=== PATIENT | male | born 1980 | race Caucasian/White ===

== ENCOUNTER → 2018-03-24 07:07 | Outpatient (CLI) | payer OTHER, SELFPAY ==
[2018-03-24 07:28] LABS: White Blood Cell Count 6.34 k/cumm (4.4-10.8)
[2018-03-24 07:29] LABS: Abs Immature Grans 0.02 k/cumm (0.0-0.09); Absolute Basophil Count 0.03 k/cumm (0.0-0.2); Absolute Eosinophil Count 0.14 k/cumm (0.0-0.7); Absolute Monocyte Count 0.72 k/cumm (0.11-0.7); Absolute Neutrophil Count 3.93 k/cumm (1.2-6.7); Basophils % 0.5; Eosinophils % 2.2; HCT 46.8 % (40.0-50.0); HGB 16.4 g/dL (13.5-17.5); Immature Grans % 0.3; Lymphocytes % 23.7; Mean Corpuscular Hemoglobin 28.5 pg (27.0-33.0); Mean Corpuscular Volume 81.4 fL (80-95); Mean Platelet Volume 11.2 fL (8.0-11.0); Monocytes % 11.4; Neutrophils % 61.9; Platelet Count 188 x1000/uL (130-400); RBC 5.75 m/cumm (4.50-6.00); RBC Distribution Width 13.6 % (11.8-14.1)
[2018-03-24 07:40] LABS: ALT 98 U/L (12-78); AST 61 U/L (15-37); Alkaline Phosphatase 64 U/L (46-116); Anion Gap 8.1 mmol/L (3-11); BUN 16 mg/dL (7-18); Bilirubin, Total 0.6 mg/dL (0.2-1.0); CO2 26.9 mmol/L (21.0-32.0); CREATININE 0.81 mg/dL (0.70-1.30); Calcium 8.6 mg/dL (8.5-10.1); Chloride 103 mmol/L (98-107); Glucose 100 mg/dL (70-100); Potassium 3.9 mmol/L (3.5-5.1); Sodium 138 mmol/L (136-145); Total Protein 7.1 g/dL (6.4-8.2)
== END ==
PROVIDERS: PCP Nurse Practitioner; Visit Provider Internal Medicine Hematology & Oncology
DX: D69.6 Thrombocytopenia, unspecified (principal)
CPT/HCPCS: 36415; 80053; 85025

== ENCOUNTER 2018-04-03 15:30 | Outpatient (RCR) | payer OTHER, SELFPAY ==
--- NOTE | 2017-08-07 15:14 | PTIDS_ITS ---
DATE: 08/07/17 REFERRING PROVIDER: Aicha Beckford NP DIAGNOSIS: right shoulder pain Patient did not return for a follow up appointment(s). ___x__ Patient called to cancel remaining appointment(s). Reason: improved symptoms Return to physician recommended. Patient had achieved an improvement in condition up to their prior level of function. Patient was instructed in a customized home exercise program to continue independently at home. The patient was given the option to call and schedule an appointment any time within a 3-week period if they experience a return of symptoms. Patient did not schedule follow up within this time frame. COMMENTS: ___x__ Discharge from PT at this time. Medicare: Unable to assign G-Codes due to the lack of a formal follow up visit. Patient did not schedule further visits after their last attended appointment and therefore a final assessment could not be performed.
--- NOTE | 2018-04-03 15:30 | IE_ITS ---
Date: April 03, 2018 Referring: Davidson Cannon MD M.D. Diagnosis: L low back pain/hamstring tightness P.T. Diagnosis: L hamstring tightness, deconditioning SUBJECTIVE: History of Present Illness: Carlos presents with complaints of insidious onset of L hamstring pain.He states that he began noticing pain several weeks ago without any exacerbating events. States his leg just feels tight all the time. He is unable to identify any exacerbating factors although he does get pain alleviation with use of CBD oil which he uses nightly. He had also recently purchased orthotics to address some heel pain and he feels these maybe helping with the hamstring pain as well. He denies numbness or tingling, denies radiation to the low back, buttock. 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 He spends a great deal of time on his feet throughout the day. He does not perform any regular exercise. Current Level of Function: Grossly unrestricted. The patient does report some difficulty squatting and donning/doffing shoes. Previous Treatment: Patient has been seen here in PT for shoulder and neck pain , has been recommended for a regular exercise program, and in fact has met with our job trainer here in the clinic, however patient admits that he has not taken up any regular activities. Social: Comorbidities: Idiopathic thrombocytopenic purpura, anxiety and hypertension. Falls in the last year: __X__ No ____Yes - How many? ____ - (if over 2, balance SM needs to be completed) Reported hospitalizations in the last year - __X__ No ____ Yes - Dates of admission/reason: Medications: Cetirizine, Lisinopril, Lorazepam. Quality of Life: __X__ Excellent ____ Good ____ Fair ____ Poor Standardized Measures: LEFS score: __76/80 OBJECTIVE: Posture: Patient demonstrates rounded shoulder, forward head posturing, exaggerated in seated position. He is well maintained longitudinal arches, mild genu varus. Observation: (behavior, atrophy, skin color, etc.) Gait: Non-antalgic, non-ataxic Palpation: Grossly non-tender throughout the LE's bilaterally. ROM: Trunk motion is WNL, the patient is able to demonstrate forward flexion, fingertips 6 from the floor, limited by drawing through the hamstrings bilaterally, otherwise trunk ROM is WNL. Hip motion is full and painfree Strength: Hip flexion 5/5 bilaterally, quads 5/5, hamstrings 5/5 bilaterally without pain reproduction. Ankle dorsiflexion is 5/5 bilaterally, hip IR is 4+/ 5 bilaterally, ER 4+/5 bilaterally. Of note: in seated position has poor proximal stability requiring UE support for resisted testing of LE's. MMT to glut med is 4-/5 on L, 4/5 R. Special Tests: (-) slump test although patient dumas shave hamstring drawing with this bilaterally. SLR allows 65 degrees R, 45 degrees on the L with pain symptoms isolated to the hamstring and denial of low back, buttock or calf pain. Neuro: Dermatomes and myotomes are WNL. DTR's are 2+ for the patella and Achilles tendon reflexes bilaterally. Patient able to toe and heel walk. Treatment: Consisted of evaluation followed by long discussion regarding appropriate treatment planning and goals. The patient was instructed in early HEP beginning with core stabilization and glut strengthening exercises. He was also instructed in self stretching techniques for hamstring by downward dog position. IE: [id number] Direct treatment time: 40 MINS Total treatment time: 40ISN ASSESSMENT: Patient is a 37-year-old male, referred for PT services with the diagnosis of L hamstring pain. Patient presents with clinical signs and symptoms consistent with diagnosis with significant muscle imbalance and soft tissue tightness, as well as generalized weakness and deconditioning. , as demonstrated by the following impairment level findings: 1: Decreased core stability. 2: Decreased gluteal strength. 3: Decreased hamstring flexibility. 4: Decreased activity7 tolerance. Impairments are contributing to the following functional limitations: 1: L hamstring pain throughout the course of the day. 2 : Pain at rest. 3: Difficulty with ADL's, particularly donning and doffing socks and shoes. Patient is assessed as: __X__ Low 65187 ____ Moderate 18964 ____ High 29018 complexity, based on the following: History: (list): Insidious onset of hamstring pain in otherwise health 37 year old male with inactive lifestyle. See comorbidities and social history. Examination: (list): X See above for functional limitations and impairments. Presentation: X Stable . Evolving Unstable Decision-Making: X Low complexity Moderate complexity High complexity % Disability based on __X__ Patient requires skilled PT intervention to remediate the above functional limitations to return to: __x__ Premorbid level of function __x__ Return to full functional mobility __x__ Return to work demands __x__ Improve QOL STG: __6__ weeks. 1: Patient able to tolerate introduction of strengthening and flexibility program without exacerbation of pain symptoms. LTG: __12__ weeks. 1: SLR to 65 degrees or greater. 2: Decrease pain at rest with VAS rating of less than 2/10 on average. PLAN: I will plan to see patient 1x a week initially with tapering visits over the course of next 12 weeks. Treatment will be primarily exercise based with core stabilization and proximal strengthening activities as well as instruction in self stretching exercises. Will incorporate manual stretching and joint mobilizations as needed. Will also encourage generalized activity for overall conditioning and health lifestyle. Thank you for this referral. Please do not hesitate to contact me with any questions or concerns regarding this patient's plan of care.
== END 2018-04-18 23:59 | disposition home or self-care (01) ==
LOC: PT 15:30
PROVIDERS: PCP Nurse Practitioner; Referring Provider Nurse Practitioner; Visit Provider Nurse Practitioner
DX: M79.652 Pain in left thigh (principal); M54.5 Low back pain; R29.898 Other symptoms and signs involving the musculoskeletal system
CPT/HCPCS: 97161

== ENCOUNTER → 2018-04-09 01:48 | Outpatient (CLI) | payer OTHER, SELFPAY ==
[2018-04-09 07:29] LABS: Abs Immature Grans 0.03 k/cumm (0.0-0.09); Absolute Basophil Count 0.04 k/cumm (0.0-0.2); Absolute Lymphocyte Count 1.47 k/cumm (1.2-3.4); Absolute Neutrophil Count 4.04 k/cumm (1.2-6.7); Basophils % 0.6; Eosinophils % 3.1; HCT 48.2 % (40.0-50.0); HGB 16.8 g/dL (13.5-17.5); Immature Grans % 0.5; Lymphocytes % 22.7; Mean Corp. HGB Concentration 34.9 g/dL (32.0-36.0); Mean Corpuscular Hemoglobin 28.6 pg (27.0-33.0); Mean Platelet Volume 11.4 fL (8.0-11.0); Monocytes % 10.8; Neutrophils % 62.3; Platelet Count 161 x1000/uL (130-400); RBC 5.88 m/cumm (4.50-6.00); RBC Distribution Width 13.7 % (11.8-14.1); White Blood Cell Count 6.48 k/cumm (4.4-10.8)
[2018-04-09 07:43] LABS: ALT 100 U/L (12-78); AST 54 U/L (15-37); Albumin 4.1 g/dL (3.4-5.0); Alkaline Phosphatase 62 U/L (46-116); Anion Gap 6.3 mmol/L (3-11); BUN 18 mg/dL (7-18); Bilirubin, Total 0.6 mg/dL (0.2-1.0); CO2 27.7 mmol/L (21.0-32.0); Calcium 8.7 mg/dL (8.5-10.1); Chloride 104 mmol/L (98-107); Glucose 99 mg/dL (70-100); Sodium 138 mmol/L (136-145); Total Protein 7.1 g/dL (6.4-8.2)
== END ==
PROVIDERS: Nurse Practitioner Family; PCP Nurse Practitioner; Visit Provider Internal Medicine Hematology & Oncology
DX: D69.6 Thrombocytopenia, unspecified (principal)
CPT/HCPCS: 36415; 80053; 85025

== ENCOUNTER 2018-04-25 07:51 | Outpatient (CLI) | payer OTHER, SELFPAY ==
[2018-04-25 09:38] LABS: ALT 66 U/L (12-78); AST 43 U/L (15-37); Albumin 4.2 g/dL (3.4-5.0); Alkaline Phosphatase 67 U/L (46-116); Bilirubin, Total 0.6 mg/dL (0.2-1.0); Cholesterol 209 mg/dL (50-200); HDL Cholesterol 42 mg/dL (40-60); LDL CHOLESTEROL 138 mg/dL (<100); Triglyceride 187 mg/dL (30-150)
[2018-04-25 09:51] LABS: Bilirubin, Direct 0.12 mg/dL (0.00-0.20)
== END 2018-04-25 08:11 ==
LOC: LBN 07:52 → LBO 07:54
PROVIDERS: PCP Nurse Practitioner; Visit Provider Nurse Practitioner
DX: R94.5 Abnormal results of liver function studies (principal); E78.1 Pure hyperglyceridemia
CPT/HCPCS: 36415; 80061; 80076; 83721

== ENCOUNTER 2018-06-30 09:02 | Outpatient (CLI) | payer OTHER, SELFPAY ==
[2018-06-30 09:23] LABS: Abs Immature Grans 0.04 k/cumm (0.0-0.09); Absolute Basophil Count 0.02 k/cumm (0.0-0.2); Absolute Lymphocyte Count 1.31 k/cumm (1.2-3.4); Absolute Monocyte Count 0.72 k/cumm (0.11-0.7); Absolute Neutrophil Count 4.93 k/cumm (1.2-6.7); Basophils % 0.3; Eosinophils % 1.4; HCT 47.1 % (40.0-50.0); HGB 16.4 g/dL (13.5-17.5); Immature Grans % 0.6; Lymphocytes % 18.4; Mean Corp. HGB Concentration 34.8 g/dL (32.0-36.0); Mean Corpuscular Hemoglobin 28.3 pg (27.0-33.0); Mean Corpuscular Volume 81.3 fL (80-95); Monocytes % 10.1; Neutrophils % 69.2; RBC 5.79 m/cumm (4.50-6.00); RBC Distribution Width 13.8 % (11.8-14.1); White Blood Cell Count 7.12 k/cumm (4.4-10.8)
[2018-06-30 09:47] LABS: ALT 75 U/L (12-78); AST 40 U/L (15-37); Albumin 4.1 g/dL (3.4-5.0); Alkaline Phosphatase 62 U/L (46-116); Anion Gap 7.2 mmol/L (3-11); BUN 19 mg/dL (7-18); Bilirubin, Total 0.6 mg/dL (0.2-1.0); CO2 29.8 mmol/L (21.0-32.0); Calcium 9.1 mg/dL (8.5-10.1); Chloride 103 mmol/L (98-107); Glucose 104 mg/dL (70-100); Potassium 4.1 mmol/L (3.5-5.1); Sodium 140 mmol/L (136-145); Total Protein 7.3 g/dL (6.4-8.2)
[2018-06-30 09:50] LABS: Platelet Count 11 x1000/uL (130-400)
[2018-06-30 09:52] LABS: Diff Comment Diff Reviewed
[2018-06-30 09:53] LABS: Polychromasia Present
== END 2018-06-30 09:22 ==
PROVIDERS: Nurse Practitioner Family; PCP Nurse Practitioner; Visit Provider Internal Medicine Hematology & Oncology
DX: D69.3 Immune thrombocytopenic purpura (principal)
CPT/HCPCS: 36415; 80053; 85025

== ENCOUNTER 2018-07-01 12:17 | Outpatient (CLI) | payer OTHER, SELFPAY ==
[2018-07-01 12:41] LABS: Abs Immature Grans 0.03 k/cumm (0.0-0.09); Absolute Basophil Count 0.01 k/cumm (0.0-0.2); Absolute Eosinophil Count 0.03 k/cumm (0.0-0.7); Absolute Lymphocyte Count 0.66 k/cumm (1.2-3.4); Absolute Monocyte Count 0.19 k/cumm (0.11-0.7); Absolute Neutrophil Count 5.97 k/cumm (1.2-6.7); Basophils % 0.1; Eosinophils % 0.4; HCT 46.3 % (40.0-50.0); Immature Grans % 0.4; Lymphocytes % 9.6; Mean Corp. HGB Concentration 34.6 g/dL (32.0-36.0); Mean Corpuscular Hemoglobin 27.9 pg (27.0-33.0); Mean Corpuscular Volume 80.8 fL (80-95); Monocytes % 2.8; Neutrophils % 86.7; Platelet Count 32 x1000/uL (130-400); RBC 5.73 m/cumm (4.50-6.00); RBC Distribution Width 13.7 % (11.8-14.1); White Blood Cell Count 6.89 k/cumm (4.4-10.8)
[2018-07-01 12:49] LABS: Diff Comment PLT Morph Reviewed; RBC Morphology Normal
[2018-07-01 12:54] LABS: ALT 57 U/L (12-78); AST 31 U/L (15-37); Albumin 3.6 g/dL (3.4-5.0); Alkaline Phosphatase 59 U/L (46-116); Anion Gap 7.2 mmol/L (3-11); BUN 15 mg/dL (7-18); Bilirubin, Total 0.8 mg/dL (0.2-1.0); CO2 27.8 mmol/L (21.0-32.0); Calcium 9.1 mg/dL (8.5-10.1); Chloride 99 mmol/L (98-107); Glucose 102 mg/dL (70-100); Potassium 4.1 mmol/L (3.5-5.1); Sodium 134 mmol/L (136-145); Total Protein 10.8 g/dL (6.4-8.2)
== END 2018-07-01 12:37 ==
LOC: LBN 12:18 → LBO 12:19
PROVIDERS: PCP Nurse Practitioner; Visit Provider Internal Medicine Hematology & Oncology
DX: D69.3 Immune thrombocytopenic purpura (principal)
CPT/HCPCS: 36415; 80053; 86900; 86901; 85025

== ENCOUNTER 2018-07-04 02:17 | Outpatient (CLI) | payer OTHER, SELFPAY ==
[2018-07-04 07:49] LABS: Abs Immature Grans 0.04 k/cumm (0.0-0.09); Absolute Basophil Count 0.01 k/cumm (0.0-0.2); Absolute Lymphocyte Count 1.55 k/cumm (1.2-3.4); Absolute Monocyte Count 1.22 k/cumm (0.11-0.7); Absolute Neutrophil Count 9.47 k/cumm (1.2-6.7); Basophils % 0.1; HCT 45.6 % (40.0-50.0); HGB 15.8 g/dL (13.5-17.5); Immature Grans % 0.3; Lymphocytes % 12.6; Mean Corp. HGB Concentration 34.6 g/dL (32.0-36.0); Mean Corpuscular Volume 80.9 fL (80-95); Monocytes % 9.9; Neutrophils % 77.1; RBC 5.64 m/cumm (4.50-6.00); RBC Distribution Width 13.9 % (11.8-14.1); White Blood Cell Count 12.28 k/cumm (4.4-10.8)
[2018-07-04 08:01] LABS: Diff Comment PLT Morph Reviewed; RBC Morphology Normal
[2018-07-04 08:02] LABS: Platelet Count 138 x1000/uL (130-400)
== END 2018-07-04 02:37 ==
PROVIDERS: PCP Nurse Practitioner; Visit Provider Internal Medicine Hematology & Oncology
DX: D69.3 Immune thrombocytopenic purpura (principal)
CPT/HCPCS: 36415; 85025

== ENCOUNTER 2018-07-07 01:28 | Outpatient (CLI) | payer OTHER, SELFPAY ==
[2018-07-07 07:59] LABS: Abs Immature Grans 0.11 k/cumm (0.0-0.09); Absolute Basophil Count 0.01 k/cumm (0.0-0.2); Absolute Eosinophil Count 0.09 k/cumm (0.0-0.7); Absolute Lymphocyte Count 1.35 k/cumm (1.2-3.4); Absolute Monocyte Count 0.93 k/cumm (0.11-0.7); Absolute Neutrophil Count 4.68 k/cumm (1.2-6.7); Basophils % 0.1; Eosinophils % 1.3; HCT 46.3 % (40.0-50.0); Immature Grans % 1.5; Lymphocytes % 18.8; Mean Corp. HGB Concentration 34.6 g/dL (32.0-36.0); Mean Corpuscular Volume 81.1 fL (80-95); Mean Platelet Volume 11.6 fL (8.0-11.0); Neutrophils % 65.3; Platelet Count 158 x1000/uL (130-400); RBC 5.71 m/cumm (4.50-6.00); RBC Distribution Width 13.5 % (11.8-14.1); White Blood Cell Count 7.17 k/cumm (4.4-10.8)
== END 2018-07-07 01:48 ==
PROVIDERS: PCP Nurse Practitioner; Visit Provider Internal Medicine Hematology & Oncology
DX: D69.3 Immune thrombocytopenic purpura (principal)
CPT/HCPCS: 36415; 85025

== ENCOUNTER 2018-07-18 00:45 | Outpatient (RCR) | payer OTHER, SELFPAY ==
[2018-07-04] MEDS: Acetaminophen 325 MG TAB 650 MG PO (12:41)
[2018-07-04] MEDS: diphenhydrAMINE 25 MG CAP PO (12:42)
[2018-07-04 13:10] VITALS: BP 117/59; PULSE 95; RESP 18; TEMP 37; O2SAT 93
[2018-07-04 13:40] VITALS: BP 119/63; PULSE 91; RESP 18; TEMP 36.7; O2SAT 93
[2018-07-04 14:11] VITALS: BP 114/75; PULSE 96; RESP 20; TEMP 36.6; O2SAT 93
[2018-07-04 14:35] VITALS: BP 122/73; PULSE 101; RESP 20; TEMP 37; O2SAT 92
[2018-07-04 15:43] VITALS: BP 108/62; PULSE 100; RESP 18; TEMP 36.5; O2SAT 93
[2018-07-04 16:38] VITALS: BP 124/71; PULSE 92; RESP 18; TEMP 36.6; O2SAT 93
[2018-07-09 09:56] LABS: Abs Immature Grans 0.09 k/cumm (0.0-0.09); Absolute Basophil Count 0.01 k/cumm (0.0-0.2); Absolute Eosinophil Count 0.11 k/cumm (0.0-0.7); Absolute Lymphocyte Count 0.99 k/cumm (1.2-3.4); Absolute Monocyte Count 0.78 k/cumm (0.11-0.7); Absolute Neutrophil Count 4.39 k/cumm (1.2-6.7); Basophils % 0.2; Eosinophils % 1.7; HCT 47.8 % (40.0-50.0); HGB 16.6 g/dL (13.5-17.5); Immature Grans % 1.4; Lymphocytes % 15.5; Mean Corp. HGB Concentration 34.7 g/dL (32.0-36.0); Mean Corpuscular Hemoglobin 28.1 pg (27.0-33.0); Mean Platelet Volume 11.2 fL (8.0-11.0); Monocytes % 12.2; Platelet Count 186 x1000/uL (130-400); White Blood Cell Count 6.37 k/cumm (4.4-10.8)
[2018-07-09 10:03] LABS: ALT 105 U/L (12-78); AST 65 U/L (15-37); Albumin 3.6 g/dL (3.4-5.0); Alkaline Phosphatase 59 U/L (46-116); Anion Gap 8.1 mmol/L (3-11); BUN 17 mg/dL (7-18); Bilirubin, Total 0.4 mg/dL (0.2-1.0); CO2 24.9 mmol/L (21.0-32.0); CREATININE 0.93 mg/dL (0.70-1.30); Calcium 8.8 mg/dL (8.5-10.1); Chloride 103 mmol/L (98-107); Glucose 135 mg/dL (70-100); Potassium 3.9 mmol/L (3.5-5.1); Sodium 136 mmol/L (136-145); Total Protein 8.2 g/dL (6.4-8.2)
[2018-07-11] VITALS (8 sets, daily range): BP systolic 112–142; BP diastolic 65–87; PULSE 78–100; RESP 18; TEMP 36.5–36.8; O2SAT 94–96
[2018-07-11] MEDS: Acetaminophen 325 MG TAB 650 MG PO (07:17)
[2018-07-11] MEDS: diphenhydrAMINE 25 MG CAP PO (07:18)
[2018-07-11] MEDS: Normal Saline Flush 10 ML SYR IVP (07:20)
[2018-07-11] MEDS: Dexamethasone 10 MG/ML VIAL IVP (07:21)
[2018-07-16 07:46] LABS: Abs Immature Grans 0.02 k/cumm (0.0-0.09); Absolute Basophil Count 0.02 k/cumm (0.0-0.2); Absolute Lymphocyte Count 1.25 k/cumm (1.2-3.4); Absolute Monocyte Count 0.76 k/cumm (0.11-0.7); Absolute Neutrophil Count 6.67 k/cumm (1.2-6.7); Basophils % 0.2; Eosinophils % 1.1; HCT 48.8 % (40.0-50.0); HGB 16.8 g/dL (13.5-17.5); Immature Grans % 0.2; Lymphocytes % 14.2; Mean Corp. HGB Concentration 34.4 g/dL (32.0-36.0); Mean Corpuscular Volume 81.2 fL (80-95); Mean Platelet Volume 12.4 fL (8.0-11.0); Monocytes % 8.6; Neutrophils % 75.7; Platelet Count 143 x1000/uL (130-400); RBC 6.01 m/cumm (4.50-6.00); RBC Distribution Width 13.9 % (11.8-14.1); White Blood Cell Count 8.82 k/cumm (4.4-10.8)
[2018-07-18] MEDS: Acetaminophen 325 MG TAB 650 MG PO (12:18)
[2018-07-18] MEDS: Normal Saline Flush 10 ML SYR IVP ×2 (12:18→13:18)
[2018-07-18] MEDS: diphenhydrAMINE 25 MG CAP PO (12:18)
[2018-07-18] MEDS: Dexamethasone 10 MG/ML VIAL IVP (12:18)
[2018-07-18 13:07] VITALS: BP 131/78; PULSE 87; RESP 18; TEMP 36.4; O2SAT 98
[2018-07-18 13:37] VITALS: BP 119/71; PULSE 91; RESP 18; TEMP 36.4; O2SAT 93
[2018-07-18 14:29] VITALS: BP 118/73; PULSE 89; RESP 18; TEMP 36.2; O2SAT 94
[2018-07-18 15:42] VITALS: BP 137/78; PULSE 99; RESP 18; TEMP 36.5; O2SAT 95
[2018-07-18 16:10] VITALS: BP 131/89; PULSE 99; RESP 18; TEMP 36.4; O2SAT 95
== END 2018-07-18 23:59 | disposition home or self-care (01) ==
LOC: INF 00:45
PROVIDERS: Internal Medicine Hematology & Oncology; PCP Nurse Practitioner; Visit Provider Internal Medicine
DX: D69.3 Immune thrombocytopenic purpura (principal)
CPT/HCPCS: 36415; 80053; 96365; 96366; 85025; J1100; J9310

== ENCOUNTER 2018-07-25 09:17 | Outpatient (CLI) | payer OTHER, SELFPAY ==
[2018-07-25 09:33] LABS: Abs Immature Grans 0.05 k/cumm (0.0-0.09); Basophils % 0.1; HCT 45.4 % (40.0-50.0); HGB 16.1 g/dL (13.5-17.5); Immature Grans % 0.3; Lymphocytes % 9.3; Mean Corp. HGB Concentration 35.5 g/dL (32.0-36.0); Mean Corpuscular Hemoglobin 28.6 pg (27.0-33.0); Mean Corpuscular Volume 80.6 fL (80-95); Mean Platelet Volume 11.7 fL (8.0-11.0); Monocytes % 9.6; Neutrophils % 80.7; Platelet Count 165 x1000/uL (130-400); RBC 5.63 m/cumm (4.50-6.00); RBC Distribution Width 13.9 % (11.8-14.1)
[2018-07-25 09:43] LABS: Absolute Basophil Count 0.02 k/cumm (0.0-0.2); Absolute Lymphocyte Count 1.53 k/cumm (1.2-3.4); Absolute Monocyte Count 1.57 k/cumm (0.11-0.7); Absolute Neutrophil Count 13.23 k/cumm (1.2-6.7); Diff Comment Agrees w/ Instrument; RBC Morphology Normal
[2018-07-25 09:48] LABS: ALT 60 U/L (12-78); AST 31 U/L (15-37); Albumin 3.8 g/dL (3.4-5.0); Alkaline Phosphatase 62 U/L (46-116); Anion Gap 11.1 mmol/L (3-11); BUN 24 mg/dL (7-18); Bilirubin, Total 0.7 mg/dL (0.2-1.0); CO2 24.9 mmol/L (21.0-32.0); CREATININE 0.96 mg/dL (0.70-1.30); Calcium 8.9 mg/dL (8.5-10.1); Chloride 102 mmol/L (98-107); Glucose 139 mg/dL (70-100); Potassium 4.1 mmol/L (3.5-5.1); Sodium 138 mmol/L (136-145); Total Protein 7.9 g/dL (6.4-8.2)
== END 2018-07-25 09:37 ==
PROVIDERS: PCP Nurse Practitioner; Visit Provider Internal Medicine Hematology & Oncology
DX: D69.3 Immune thrombocytopenic purpura (principal)
CPT/HCPCS: 36415; 80053; 85025

== ENCOUNTER 2018-08-11 01:00 | Outpatient (RCR) | payer OTHER, SELFPAY ==
[2018-07-23 07:11] LABS: Abs Immature Grans 0.05 k/cumm (0.0-0.09); Absolute Basophil Count 0.01 k/cumm (0.0-0.2); Absolute Eosinophil Count 0.01 k/cumm (0.0-0.7); Basophils % 0.1; Eosinophils % 0.1; HCT 45.4 % (40.0-50.0); HGB 16.1 g/dL (13.5-17.5); Immature Grans % 0.3; Lymphocytes % 7.6; Mean Corp. HGB Concentration 35.5 g/dL (32.0-36.0); Mean Corpuscular Volume 78.8 fL (80-95); Mean Platelet Volume 11.9 fL (8.0-11.0); Neutrophils % 87.9; Platelet Count 118 x1000/uL (130-400); RBC 5.76 m/cumm (4.50-6.00); RBC Distribution Width 13.4 % (11.8-14.1); White Blood Cell Count 14.96 k/cumm (4.4-10.8)
[2018-07-23 07:12] LABS: Absolute Lymphocyte Count 1.14 k/cumm (1.2-3.4); Absolute Neutrophil Count 13.15 k/cumm (1.2-6.7)
[2018-07-25] VITALS (8 sets, daily range): BP systolic 113–133; BP diastolic 59–82; PULSE 76–96; RESP 14–18; TEMP 36.1–37.2; O2SAT 91–98
[2018-07-25] MEDS: Acetaminophen 325 MG TAB 650 MG PO (12:11)
[2018-07-25] MEDS: diphenhydrAMINE 25 MG CAP PO (12:11)
[2018-07-25] MEDS: Dexamethasone 10 MG/ML VIAL IVP (12:12)
[2018-07-25] MEDS: Normal Saline Flush 10 ML SYR IVP (12:12)
== END 2018-08-18 23:59 | disposition home or self-care (01) ==
LOC: INF 01:00
PROVIDERS: PCP Nurse Practitioner; Visit Provider Internal Medicine
DX: D69.3 Immune thrombocytopenic purpura (principal)
CPT/HCPCS: 36415; 96365; 96366; 85025; J1100; J9310

== ENCOUNTER 2018-08-11 08:24 | Outpatient (CLI) | payer OTHER, SELFPAY ==
[2018-08-11 08:43] LABS: Abs Immature Grans 0.04 k/cumm (0.0-0.09); HGB 15.7 g/dL (13.5-17.5); Mean Corp. HGB Concentration 34.9 g/dL (32.0-36.0); Mean Corpuscular Hemoglobin 28.7 pg (27.0-33.0); Mean Corpuscular Volume 82.3 fL (80-95); Mean Platelet Volume 11.9 fL (8.0-11.0); RBC 5.47 m/cumm (4.50-6.00); RBC Distribution Width 14.1 % (11.8-14.1); White Blood Cell Count 13.06 k/cumm (4.4-10.8)
[2018-08-11 08:56] LABS: ALT 51 U/L (12-78); AST 30 U/L (15-37); Albumin 3.5 g/dL (3.4-5.0); Alkaline Phosphatase 64 U/L (46-116); Anion Gap 7.1 mmol/L (3-11); BUN 13 mg/dL (7-18); Bilirubin, Total 0.4 mg/dL (0.2-1.0); CO2 29.9 mmol/L (21.0-32.0); CREATININE 0.92 mg/dL (0.70-1.30); Calcium 9.2 mg/dL (8.5-10.1); Chloride 102 mmol/L (98-107); Glucose 99 mg/dL (70-100); Sodium 139 mmol/L (136-145); Total Protein 7.4 g/dL (6.4-8.2)
[2018-08-11 09:02] LABS: Absolute Basophil Count 0.26 k/cumm (0.0-0.2); Absolute Eosinophil Count 0.26 k/cumm (0.0-0.7); Absolute Lymphocyte Count 2.35 k/cumm (1.2-3.4); Absolute Monocyte Count 1.57 k/cumm (0.11-0.7); Absolute Neutrophil Count 8.62 k/cumm (1.2-6.7); Atypical Lymphocytes % 9; Diff Comment Manual Differential; RBC Morphology Normal
[2018-08-11 09:03] LABS: Platelet Count 184 x1000/uL (130-400)
== END 2018-08-11 08:44 ==
PROVIDERS: PCP Nurse Practitioner; Visit Provider Internal Medicine Hematology & Oncology
DX: D69.3 Immune thrombocytopenic purpura (principal)
CPT/HCPCS: 36415; 80053; 85025

== ENCOUNTER 2018-08-18 01:43 | Outpatient (CLI) | payer OTHER, SELFPAY ==
[2018-08-18 08:49] LABS: Abs Immature Grans 0.07 k/cumm (0.0-0.09); Absolute Basophil Count 0.06 k/cumm (0.0-0.2); Absolute Eosinophil Count 0.21 k/cumm (0.0-0.7); Absolute Lymphocyte Count 2.45 k/cumm (1.2-3.4); Absolute Monocyte Count 1.73 k/cumm (0.11-0.7); Absolute Neutrophil Count 5.62 k/cumm (1.2-6.7); Basophils % 0.6; Eosinophils % 2.1; HCT 46.9 % (40.0-50.0); HGB 15.9 g/dL (13.5-17.5); Immature Grans % 0.7; Lymphocytes % 24.2; Mean Corp. HGB Concentration 33.9 g/dL (32.0-36.0); Mean Corpuscular Hemoglobin 28.4 pg (27.0-33.0); Mean Corpuscular Volume 83.9 fL (80-95); Mean Platelet Volume 11.6 fL (8.0-11.0); Monocytes % 17.1; Neutrophils % 55.3; RBC 5.59 m/cumm (4.50-6.00); RBC Distribution Width 14.6 % (11.8-14.1); White Blood Cell Count 10.14 k/cumm (4.4-10.8)
[2018-08-18 09:05] LABS: Diff Comment Diff Reviewed; Platelet Count 532 x1000/uL (130-400)
== END 2018-08-18 02:03 ==
PROVIDERS: PCP Nurse Practitioner; Visit Provider Internal Medicine Hematology & Oncology
DX: D69.3 Immune thrombocytopenic purpura (principal)
CPT/HCPCS: 36415; 85025

== ENCOUNTER 2018-08-25 01:18 | Outpatient (CLI) | payer OTHER, SELFPAY ==
[2018-08-25 07:41] LABS: Abs Immature Grans 0.03 k/cumm (0.0-0.09); Absolute Basophil Count 0.07 k/cumm (0.0-0.2); Absolute Eosinophil Count 0.15 k/cumm (0.0-0.7); Absolute Lymphocyte Count 2.07 k/cumm (1.2-3.4); Absolute Monocyte Count 1.31 k/cumm (0.11-0.7); Absolute Neutrophil Count 5.22 k/cumm (1.2-6.7); Basophils % 0.8; Eosinophils % 1.7; HCT 48.1 % (40.0-50.0); Immature Grans % 0.3; Lymphocytes % 23.4; Mean Corp. HGB Concentration 33.3 g/dL (32.0-36.0); Mean Corpuscular Hemoglobin 28.2 pg (27.0-33.0); Mean Corpuscular Volume 84.8 fL (80-95); Monocytes % 14.8; Platelet Count 463 x1000/uL (130-400); RBC 5.67 m/cumm (4.50-6.00); RBC Distribution Width 14.9 % (11.8-14.1); White Blood Cell Count 8.85 k/cumm (4.4-10.8)
== END 2018-08-25 01:38 ==
PROVIDERS: PCP Nurse Practitioner; Visit Provider Internal Medicine Hematology & Oncology
DX: D69.3 Immune thrombocytopenic purpura (principal)
CPT/HCPCS: 36415; 85025

== ENCOUNTER 2018-09-01 02:28 | Outpatient (CLI) | payer OTHER, SELFPAY ==
[2018-09-01 07:17] LABS: Abs Immature Grans 0.02 k/cumm (0.0-0.09); Absolute Basophil Count 0.08 k/cumm (0.0-0.2); Absolute Eosinophil Count 0.13 k/cumm (0.0-0.7); Absolute Lymphocyte Count 2.76 k/cumm (1.2-3.4); Absolute Monocyte Count 1.26 k/cumm (0.11-0.7); Absolute Neutrophil Count 4.02 k/cumm (1.2-6.7); Eosinophils % 1.6; HCT 50.6 % (40.0-50.0); Immature Grans % 0.2; Lymphocytes % 33.4; Mean Corp. HGB Concentration 33.6 g/dL (32.0-36.0); Mean Corpuscular Hemoglobin 28.4 pg (27.0-33.0); Mean Corpuscular Volume 84.6 fL (80-95); Mean Platelet Volume 12.2 fL (8.0-11.0); Monocytes % 15.2; Neutrophils % 48.6; Platelet Count 395 x1000/uL (130-400); RBC 5.98 m/cumm (4.50-6.00); RBC Distribution Width 15.4 % (11.8-14.1); White Blood Cell Count 8.27 k/cumm (4.4-10.8)
== END 2018-09-01 02:48 ==
PROVIDERS: PCP Nurse Practitioner; Visit Provider Internal Medicine Hematology & Oncology
DX: D69.3 Immune thrombocytopenic purpura (principal)
CPT/HCPCS: 36415; 85025

== ENCOUNTER 2018-09-12 10:57 | Outpatient (CLI) | payer OTHER, SELFPAY ==
[2018-09-12 11:33] LABS: Abs Immature Grans 0.01 k/cumm (0.0-0.09); Absolute Basophil Count 0.07 k/cumm (0.0-0.2); Absolute Eosinophil Count 0.14 k/cumm (0.0-0.7); Absolute Lymphocyte Count 2.05 k/cumm (1.2-3.4); Absolute Monocyte Count 1.22 k/cumm (0.11-0.7); Absolute Neutrophil Count 5.07 k/cumm (1.2-6.7); Basophils % 0.8; Eosinophils % 1.6; HCT 47.7 % (40.0-50.0); HGB 16.3 g/dL (13.5-17.5); Immature Grans % 0.1; Lymphocytes % 23.9; Mean Corp. HGB Concentration 34.2 g/dL (32.0-36.0); Mean Corpuscular Hemoglobin 28.6 pg (27.0-33.0); Mean Corpuscular Volume 83.7 fL (80-95); Mean Platelet Volume 12.5 fL (8.0-11.0); Monocytes % 14.3; Neutrophils % 59.3; Platelet Count 242 x1000/uL (130-400); RBC Distribution Width 15.2 % (11.8-14.1); White Blood Cell Count 8.56 k/cumm (4.4-10.8)
== END 2018-09-12 11:17 ==
PROVIDERS: PCP Nurse Practitioner; Visit Provider Internal Medicine Hematology & Oncology
DX: D69.3 Immune thrombocytopenic purpura (principal)
CPT/HCPCS: 36415; 85025

== ENCOUNTER 2018-09-15 01:25 | Outpatient (CLI) | payer OTHER, SELFPAY ==
[2018-09-15 07:59] LABS: Abs Immature Grans 0.01 k/cumm (0.0-0.09); Absolute Basophil Count 0.06 k/cumm (0.0-0.2); Absolute Eosinophil Count 0.12 k/cumm (0.0-0.7); Absolute Lymphocyte Count 1.75 k/cumm (1.2-3.4); Absolute Monocyte Count 1.04 k/cumm (0.11-0.7); Absolute Neutrophil Count 3.31 k/cumm (1.2-6.7); Eosinophils % 1.9; HGB 16.3 g/dL (13.5-17.5); Immature Grans % 0.2; Lymphocytes % 27.8; Mean Corpuscular Hemoglobin 29.1 pg (27.0-33.0); Mean Corpuscular Volume 85.7 fL (80-95); Mean Platelet Volume 12.5 fL (8.0-11.0); Monocytes % 16.5; Neutrophils % 52.6; Platelet Count 259 x1000/uL (130-400); RBC Distribution Width 15.6 % (11.8-14.1); White Blood Cell Count 6.29 k/cumm (4.4-10.8)
== END 2018-09-15 01:45 ==
PROVIDERS: PCP Nurse Practitioner; Visit Provider Internal Medicine Hematology & Oncology
DX: D69.3 Immune thrombocytopenic purpura (principal)
CPT/HCPCS: 36415; 85025

== ENCOUNTER 2018-09-29 02:45 | Outpatient (CLI) | payer OTHER, SELFPAY ==
[2018-09-29 07:25] LABS: Abs Immature Grans 0.02 k/cumm (0.0-0.09); Absolute Basophil Count 0.04 k/cumm (0.0-0.2); Absolute Eosinophil Count 0.16 k/cumm (0.0-0.7); Absolute Lymphocyte Count 1.74 k/cumm (1.2-3.4); Absolute Monocyte Count 1.42 k/cumm (0.11-0.7); Absolute Neutrophil Count 7.21 k/cumm (1.2-6.7); Basophils % 0.4; Eosinophils % 1.5; HCT 48.3 % (40.0-50.0); Immature Grans % 0.2; Lymphocytes % 16.4; Mean Corp. HGB Concentration 33.1 g/dL (32.0-36.0); Mean Corpuscular Hemoglobin 28.8 pg (27.0-33.0); Mean Corpuscular Volume 86.9 fL (80-95); Mean Platelet Volume 12.4 fL (8.0-11.0); Monocytes % 13.4; Neutrophils % 68.1; RBC 5.56 m/cumm (4.50-6.00); White Blood Cell Count 10.59 k/cumm (4.4-10.8)
[2018-09-29 07:35] LABS: Platelet Count 368 x1000/uL (130-400)
== END 2018-09-29 03:05 ==
PROVIDERS: PCP Nurse Practitioner; Visit Provider Internal Medicine Hematology & Oncology
DX: D69.3 Immune thrombocytopenic purpura (principal)
CPT/HCPCS: 36415; 85025

== ENCOUNTER 2018-10-13 01:36 | Outpatient (CLI) | payer OTHER, SELFPAY ==
[2018-10-13 07:49] LABS: Abs Immature Grans 0.03 k/cumm (0.0-0.09); Absolute Basophil Count 0.06 k/cumm (0.0-0.2); Absolute Eosinophil Count 0.11 k/cumm (0.0-0.7); Absolute Neutrophil Count 5.29 k/cumm (1.2-6.7); Basophils % 0.7; Eosinophils % 1.2; HCT 49.5 % (40.0-50.0); HGB 16.7 g/dL (13.5-17.5); Immature Grans % 0.3; Lymphocytes % 23.4; Mean Corp. HGB Concentration 33.7 g/dL (32.0-36.0); Mean Corpuscular Hemoglobin 28.7 pg (27.0-33.0); Mean Corpuscular Volume 85.2 fL (80-95); Mean Platelet Volume 12.4 fL (8.0-11.0); Monocytes % 15.6; Neutrophils % 58.8; Platelet Count 333 x1000/uL (130-400); RBC 5.81 m/cumm (4.50-6.00); RBC Distribution Width 15.6 % (11.8-14.1); White Blood Cell Count 8.99 k/cumm (4.4-10.8)
== END 2018-10-13 01:56 ==
PROVIDERS: PCP Nurse Practitioner; Visit Provider Internal Medicine Hematology & Oncology
DX: D69.3 Immune thrombocytopenic purpura (principal)
CPT/HCPCS: 36415; 85025

== ENCOUNTER 2018-11-17 01:29 | Outpatient (CLI) | payer OTHER, SELFPAY ==
[2018-11-17 07:21] LABS: Abs Immature Grans 0.01 k/cumm (0.0-0.09); Absolute Basophil Count 0.05 k/cumm (0.0-0.2); Absolute Eosinophil Count 0.19 k/cumm (0.0-0.7); Absolute Lymphocyte Count 1.96 k/cumm (1.2-3.4); Absolute Monocyte Count 1.12 k/cumm (0.11-0.7); Absolute Neutrophil Count 4.83 k/cumm (1.2-6.7); Basophils % 0.6; Eosinophils % 2.3; HCT 47.7 % (40.0-50.0); HGB 16.1 g/dL (13.5-17.5); Immature Grans % 0.1; Mean Corp. HGB Concentration 33.8 g/dL (32.0-36.0); Mean Corpuscular Hemoglobin 29.4 pg (27.0-33.0); Mean Platelet Volume 12.1 fL (8.0-11.0); Monocytes % 13.7; Neutrophils % 59.3; Platelet Count 390 x1000/uL (130-400); RBC 5.48 m/cumm (4.50-6.00); RBC Distribution Width 15.5 % (11.8-14.1); White Blood Cell Count 8.16 k/cumm (4.4-10.8)
== END 2018-11-17 01:49 ==
PROVIDERS: PCP Nurse Practitioner; Visit Provider Internal Medicine Hematology & Oncology
DX: D69.3 Immune thrombocytopenic purpura (principal)
CPT/HCPCS: 36415; 85025

== ENCOUNTER 2018-12-24 10:02 | Outpatient (CLI) | payer OTHER, SELFPAY ==
[2018-12-24 10:11] LABS: Abs Immature Grans 0.05 k/cumm (0.0-0.09); Absolute Basophil Count 0.04 k/cumm (0.0-0.2); Absolute Eosinophil Count 0.08 k/cumm (0.0-0.7); Absolute Lymphocyte Count 1.71 k/cumm (1.2-3.4); Absolute Monocyte Count 1.37 k/cumm (0.11-0.7); Basophils % 0.3; Eosinophils % 0.6; HCT 48.3 % (40.0-50.0); HGB 16.4 g/dL (13.5-17.5); Immature Grans % 0.4; Lymphocytes % 13.5; Mean Corpuscular Hemoglobin 29.2 pg (27.0-33.0); Mean Corpuscular Volume 86.1 fL (80-95); Mean Platelet Volume 12.2 fL (8.0-11.0); Monocytes % 10.8; Neutrophils % 74.4; Platelet Count 363 x1000/uL (130-400); RBC 5.61 m/cumm (4.50-6.00); RBC Distribution Width 15.2 % (11.8-14.1); White Blood Cell Count 12.64 k/cumm (4.4-10.8)
[2018-12-24 10:30] LABS: ALT 69 U/L (12-78); AST 38 U/L (15-37); Alkaline Phosphatase 99 U/L (46-116); Anion Gap 11.2 mmol/L (3-11); BUN 15 mg/dL (7-18); Bilirubin, Total 0.5 mg/dL (0.2-1.0); CO2 25.8 mmol/L (21.0-32.0); Calcium 8.9 mg/dL (8.5-10.1); Chloride 101 mmol/L (98-107); Glucose 128 mg/dL (70-100); Potassium 3.9 mmol/L (3.5-5.1); Sodium 138 mmol/L (136-145); TSH (W/Ref FT4) 1.13 uIU/mL (0.358-3.74); Total Protein 7.5 g/dL (6.4-8.2)
== END 2018-12-24 10:22 ==
PROVIDERS: PCP Nurse Practitioner; Visit Provider Internal Medicine Hematology & Oncology
DX: F41.9 Anxiety disorder, unspecified (principal); B02.9 Zoster without complications
CPT/HCPCS: 36415; 80053; 84443; 85025

== ENCOUNTER 2019-02-09 06:47 | Outpatient (CLI) | payer OTHER, SELFPAY ==
[2019-02-09 07:13] LABS: HCT 48.7 % (40.0-50.0); HGB 16.8 g/dL (13.5-17.5); Mean Corp. HGB Concentration 34.5 g/dL (32.0-36.0); Mean Corpuscular Hemoglobin 29.9 pg (27.0-33.0); Mean Corpuscular Volume 86.7 fL (80-95); Mean Platelet Volume 12.4 fL (8.0-11.0); Platelet Count 352 x1000/uL (130-400); RBC 5.62 m/cumm (4.50-6.00); RBC Distribution Width 15.5 % (11.8-14.1); White Blood Cell Count 8.35 k/cumm (4.4-10.8)
[2019-02-09 07:37] LABS: ALT 53 U/L (12-78); AST 31 U/L (15-37); Alkaline Phosphatase 89 U/L (46-116); Anion Gap 11.2 mmol/L (3-11); BUN 16 mg/dL (7-18); Bilirubin, Total 0.4 mg/dL (0.2-1.0); CO2 24.8 mmol/L (21.0-32.0); CREATININE 0.86 mg/dL (0.70-1.30); Calcium 9.1 mg/dL (8.5-10.1); Chloride 105 mmol/L (98-107); Glucose 115 mg/dL (70-100); Potassium 4.3 mmol/L (3.5-5.1); Sodium 141 mmol/L (136-145); Total Protein 7.2 g/dL (6.4-8.2)
[2019-02-09 08:20] LABS: Absolute Basophil Count 0.08 k/cumm (0.0-0.2); Absolute Eosinophil Count 0.08 k/cumm (0.0-0.7); Absolute Lymphocyte Count 2.42 k/cumm (1.2-3.4); Absolute Monocyte Count 0.84 k/cumm (0.11-0.7); Absolute Neutrophil Count 4.93 k/cumm (1.2-6.7); Atypical Lymphocytes % 5
[2019-02-09 08:21] LABS: Diff Comment Manual Differential
[2019-02-09 08:22] LABS: Poikilocytes 1+
== END 2019-02-09 07:07 ==
PROVIDERS: PCP Nurse Practitioner; Visit Provider Internal Medicine Hematology & Oncology
DX: D69.3 Immune thrombocytopenic purpura (principal); D69.6 Thrombocytopenia, unspecified
CPT/HCPCS: 36415; 80053; 85025

== ENCOUNTER 2019-04-21 08:22 | Outpatient (CLI) | payer OTHER, SELFPAY ==
[2019-04-21 09:17] LABS: Abs Immature Grans 0.02 k/cumm (0.0-0.09); Absolute Basophil Count 0.07 k/cumm (0.0-0.2); Absolute Eosinophil Count 0.23 k/cumm (0.0-0.7); Absolute Lymphocyte Count 2.89 k/cumm (1.2-3.4); Absolute Monocyte Count 1.22 k/cumm (0.11-0.7); Absolute Neutrophil Count 5.32 k/cumm (1.2-6.7); Basophils % 0.7; Eosinophils % 2.4; HCT 48.3 % (40.0-50.0); HGB 16.4 g/dL (13.5-17.5); Immature Grans % 0.2; Lymphocytes % 29.6; Mean Corpuscular Hemoglobin 29.6 pg (27.0-33.0); Mean Corpuscular Volume 87.2 fL (80-95); Monocytes % 12.5; Neutrophils % 54.6; Platelet Count 309 x1000/uL (130-400); RBC 5.54 m/cumm (4.50-6.00); RBC Distribution Width 15.3 % (11.8-14.1); White Blood Cell Count 9.75 k/cumm (4.4-10.8)
[2019-04-21 10:09] LABS: ALT 56 U/L (16-63); AST 34 U/L (15-37); Albumin 4.1 g/dL (3.4-5.0); Alkaline Phosphatase 83 U/L (46-116); Anion Gap 11.1 mmol/L (3-11); BUN 16 mg/dL (7-18); Bilirubin, Total 0.3 mg/dL (0.2-1.0); CO2 24.9 mmol/L (21.0-32.0); Calcium 9.3 mg/dL (8.5-10.1); Chloride 104 mmol/L (98-107); Glucose 100 mg/dL (70-100); Potassium 4.8 mmol/L (3.5-5.1); Sodium 140 mmol/L (136-145); Total Protein 7.2 g/dL (6.4-8.2)
== END 2019-04-21 08:42 ==
PROVIDERS: PCP Nurse Practitioner; Visit Provider Internal Medicine Hematology & Oncology
DX: B02.9 Zoster without complications (principal)
CPT/HCPCS: 36415; 80053; 85025

== ENCOUNTER 2019-05-27 01:43 | Outpatient (CLI) | payer OTHER, SELFPAY ==
[2019-05-27 07:27] LABS: Abs Immature Grans 0.03 k/cumm (0.0-0.09); Absolute Basophil Count 0.06 k/cumm (0.0-0.2); Absolute Eosinophil Count 0.24 k/cumm (0.0-0.7); Absolute Lymphocyte Count 2.63 k/cumm (1.2-3.4); Absolute Monocyte Count 1.36 k/cumm (0.11-0.7); Absolute Neutrophil Count 5.16 k/cumm (1.2-6.7); Basophils % 0.6; Eosinophils % 2.5; HGB 16.8 g/dL (13.5-17.5); Immature Grans % 0.3; Lymphocytes % 27.7; Mean Corp. HGB Concentration 34.3 g/dL (32.0-36.0); Mean Corpuscular Hemoglobin 29.5 pg (27.0-33.0); Mean Platelet Volume 12.6 fL (8.0-11.0); Monocytes % 14.3; Neutrophils % 54.6; Platelet Count 307 x1000/uL (130-400); RBC Distribution Width 14.9 % (11.8-14.1); White Blood Cell Count 9.48 k/cumm (4.4-10.8)
[2019-05-27 07:38] LABS: ALT 56 U/L (16-63); AST 40 U/L (15-37); Albumin 4.1 g/dL (3.4-5.0); Alkaline Phosphatase 81 U/L (46-116); Anion Gap 9.6 mmol/L (3-11); BUN 15 mg/dL (7-18); Bilirubin, Total 0.7 mg/dL (0.2-1.0); CO2 26.4 mmol/L (21.0-32.0); CREATININE 0.81 mg/dL (0.70-1.30); Calcium 9.2 mg/dL (8.5-10.1); Chloride 106 mmol/L (98-107); Glucose 106 mg/dL (70-100); Potassium 4.2 mmol/L (3.5-5.1); Sodium 142 mmol/L (136-145); Total Protein 7.6 g/dL (6.4-8.2)
== END 2019-05-27 02:03 ==
PROVIDERS: PCP Nurse Practitioner; Visit Provider Internal Medicine Hematology & Oncology
DX: B02.9 Zoster without complications (principal)
CPT/HCPCS: 36415; 80053; 85025

== ENCOUNTER 2019-07-24 10:28 | Outpatient (CLI) | payer OTHER, SELFPAY ==
[2019-07-24 11:03] LABS: Abs Immature Grans 0.03 k/cumm (0.0-0.09); Absolute Basophil Count 0.06 k/cumm (0.0-0.2); Absolute Eosinophil Count 0.13 k/cumm (0.0-0.7); Absolute Lymphocyte Count 2.79 k/cumm (1.2-3.4); Absolute Monocyte Count 1.61 k/cumm (0.11-0.7); Basophils % 0.5; Eosinophils % 1.1; HCT 47.3 % (40.0-50.0); Immature Grans % 0.3; Lymphocytes % 24.4; Mean Corp. HGB Concentration 33.8 g/dL (32.0-36.0); Mean Corpuscular Hemoglobin 28.7 pg (27.0-33.0); Mean Corpuscular Volume 84.8 fL (80-95); Mean Platelet Volume 12.6 fL (8.0-11.0); Monocytes % 14.1; Neutrophils % 59.6; RBC 5.58 m/cumm (4.50-6.00); RBC Distribution Width 14.7 % (11.8-14.1); White Blood Cell Count 11.45 k/cumm (4.4-10.8)
[2019-07-24 11:06] LABS: Absolute Neutrophil Count 6.82 k/cumm (1.2-6.7)
[2019-07-24 11:25] LABS: Diff Comment Diff Reviewed; Platelet Count 307 x1000/uL (130-400); RBC Morphology Normal
[2019-07-24 12:07] LABS: ALT 62 U/L (16-63); AST 46 U/L (15-37); Albumin 4.5 g/dL (3.4-5.0); Alkaline Phosphatase 83 U/L (46-116); Anion Gap 11.1 mmol/L (3-11); BUN 15 mg/dL (7-18); Bilirubin, Total 0.6 mg/dL (0.2-1.0); CO2 24.9 mmol/L (21.0-32.0); CREATININE 0.78 mg/dL (0.70-1.30); Calcium 9.7 mg/dL (8.5-10.1); Chloride 105 mmol/L (98-107); Glucose 124 mg/dL (74-106); Potassium 4.4 mmol/L (3.5-5.1); Sodium 141 mmol/L (136-145); Total Protein 7.6 g/dL (6.4-8.2)
== END 2019-07-24 10:48 ==
PROVIDERS: PCP Nurse Practitioner; Visit Provider Internal Medicine Hematology & Oncology
DX: B02.9 Zoster without complications (principal)
CPT/HCPCS: 36415; 80053; 85025

== ENCOUNTER 2020-04-06 11:21 | Outpatient (CLI) | payer OTHER, SELFPAY ==
[2020-04-06 11:46] LABS: Abs Immature Grans 0.06 10^3/uL (0.0-0.06); HCT 47.8 % (40.0-50.0); HGB 16.2 g/dL (13.5-17.5); MCH 28.8 pg (27.0-33.0); MCHC 33.9 % (32.0-36.0); MCV 85.1 fL (80-95); MPV 14.4 fL (8.0-11.0); Nucleated RBC 0 %; RBC 5.62 10^6/uL (4.36-5.78); RDW 14.3 % (11.8-14.1); RDW-SD 43.9 fL; WBC 14.61 10^3/uL (4.4-10.8)
[2020-04-06 12:01] LABS: ALT 49 U/L (16-63); AST 31 U/L (15-37); Albumin 4.1 g/dL (3.4-5.0); Alkaline Phosphatase 76 U/L (46-116); Anion Gap 10.3 mmol/L (3-11); BUN 16 mg/dL (7-18); Bilirubin, Total 0.5 mg/dL (0.2-1.0); CO2 26.7 mmol/L (21.0-32.0); CREATININE 0.94 mg/dL (0.70-1.30); Calcium 9.1 mg/dL (8.5-10.1); Chloride 102 mmol/L (98-107); Glucose 122 mg/dL (74-106); Potassium 3.7 mmol/L (3.5-5.1); Sodium 139 mmol/L (136-145); Total Protein 7.7 g/dL (6.4-8.2)
[2020-04-06 12:03] LABS: Absolute Eosinophil Count 0.15 10^3/uL (0.0-0.7); Absolute Lymphocyte Count 2.19 10^3/uL (1.2-3.4); Absolute Monocyte Count 1.31 10^3/uL (0.1-0.8); Absolute Neutrophil Count 10.96 10^3/uL (1.2-6.7); Atypical Lymphocytes % 4
[2020-04-06 12:04] LABS: Diff Comment Manual Differential; Platelet Count 179 10^3/uL (130-400); RBC Morphology Normal
== END 2020-04-06 11:41 ==
PROVIDERS: PCP Nurse Practitioner; Visit Provider Internal Medicine Hematology & Oncology
DX: B02.9 Zoster without complications (principal)
CPT/HCPCS: 36415; 80053; 85025

== ENCOUNTER 2020-04-20 05:06 | Outpatient (CLI) | payer OTHER, SELFPAY ==
[2020-04-20 07:50] LABS: Abs Immature Grans 0.03 10^3/uL (0.0-0.06); Absolute Basophil Count 0.06 10^3/uL (0.0-0.2); Absolute Eosinophil Count 0.19 10^3/uL (0.0-0.7); Absolute Lymphocyte Count 3.18 10^3/uL (1.2-3.4); Absolute Monocyte Count 1.35 10^3/uL (0.1-0.8); Absolute Neutrophil Count 4.57 10^3/uL (1.2-6.7); Basophils % 0.6; HCT 47.6 % (40.0-50.0); HGB 16.2 g/dL (13.5-17.5); Immature Grans % 0.3; Lymphocytes % 33.9; MCH 28.6 pg (27.0-33.0); MPV 14.4 fL (8.0-11.0); Monocytes % 14.4; Neutrophils % 48.8; Nucleated RBC 0 %; RBC 5.67 10^6/uL (4.36-5.78); RDW 14.6 % (11.8-14.1); WBC 9.38 10^3/uL (4.4-10.8)
[2020-04-20 08:05] LABS: Diff Comment PLT Morph Reviewed; Platelet Count 183 10^3/uL (130-400); RBC Morphology Normal
[2020-04-20 08:36] LABS: ALT 52 U/L (16-63); AST 33 U/L (15-37); Albumin 4.2 g/dL (3.4-5.0); Alkaline Phosphatase 72 U/L (46-116); Anion Gap 9.1 mmol/L (3-11); BUN 19 mg/dL (7-18); Bilirubin, Total 0.8 mg/dL (0.2-1.0); CO2 25.9 mmol/L (21.0-32.0); CREATININE 0.81 mg/dL (0.70-1.30); Calcium 9.1 mg/dL (8.5-10.1); Chloride 107 mmol/L (98-107); Glucose 121 mg/dL (74-106); Potassium 4.4 mmol/L (3.5-5.1); Sodium 142 mmol/L (136-145); Total Protein 7.3 g/dL (6.4-8.2)
== END 2020-04-20 05:26 ==
PROVIDERS: PCP Nurse Practitioner; Visit Provider Internal Medicine Hematology & Oncology
DX: B02.9 Zoster without complications (principal)
CPT/HCPCS: 36415; 80053; 85025

== ENCOUNTER 2020-05-17 13:18 | Outpatient (CLI) | payer OTHER, SELFPAY ==
[2020-05-17 13:38] LABS: HCT 48.9 % (40.0-50.0); HGB 16.3 g/dL (13.5-17.5); MCH 28.4 pg (27.0-33.0); MCHC 33.3 % (32.0-36.0); MCV 85.3 fL (80-95); MPV 13.6 fL (8.0-11.0); Nucleated RBC 0 %; RBC 5.73 10^6/uL (4.36-5.78); RDW 14.6 % (11.8-14.1); RDW-SD 45.1 fL; WBC 11.07 10^3/uL (4.4-10.8)
[2020-05-17 13:52] LABS: ALT 48 U/L (16-63); AST 32 U/L (15-37); Albumin 4.2 g/dL (3.4-5.0); Alkaline Phosphatase 72 U/L (46-116); Anion Gap 8.8 mmol/L (3-11); BUN 13 mg/dL (7-18); Bilirubin, Total 0.7 mg/dL (0.2-1.0); CO2 27.2 mmol/L (21.0-32.0); CREATININE 0.88 mg/dL (0.70-1.30); Calcium 9.3 mg/dL (8.5-10.1); Chloride 105 mmol/L (98-107); Glucose 103 mg/dL (74-106); Potassium 3.7 mmol/L (3.5-5.1); Sodium 141 mmol/L (136-145); Total Protein 7.7 g/dL (6.4-8.2)
[2020-05-17 14:09] LABS: Absolute Eosinophil Count 0.33 10^3/uL (0.0-0.7); Absolute Lymphocyte Count 4.43 10^3/uL (1.2-3.4); Absolute Monocyte Count 0.66 10^3/uL (0.1-0.8); Absolute Neutrophil Count 5.54 10^3/uL (1.2-6.7); Atypical Lymphocytes % 4
[2020-05-17 14:10] LABS: Diff Comment Manual Differential; Microcytosis 1+; Platelet Count 197 10^3/uL (130-400)
[2020-05-17 14:11] LABS: Poikilocytes 1+
== END 2020-05-17 13:38 ==
PROVIDERS: PCP Nurse Practitioner; Visit Provider Internal Medicine Hematology & Oncology
DX: D69.3 Immune thrombocytopenic purpura (principal); F41.1 Generalized anxiety disorder
CPT/HCPCS: 36415; 80053; 85025

== ENCOUNTER 2020-06-14 02:41 | Outpatient (CLI) | payer OTHER, SELFPAY ==
[2020-06-14 07:48] LABS: Abs Immature Grans 0.02 10^3/uL (0.0-0.06); HCT 46.8 % (40.0-50.0); HGB 15.9 g/dL (13.5-17.5); MCH 28.6 pg (27.0-33.0); MCV 84.2 fL (80-95); MPV 13.2 fL (8.0-11.0); Nucleated RBC 0 %; RBC 5.56 10^6/uL (4.36-5.78); RDW 14.6 % (11.8-14.1); RDW-SD 44.9 fL; WBC 8.02 10^3/uL (4.4-10.8)
[2020-06-14 07:57] LABS: ALT 47 U/L (16-63); AST 30 U/L (15-37); Albumin 3.9 g/dL (3.4-5.0); Alkaline Phosphatase 75 U/L (46-116); Anion Gap 4.8 mmol/L (3-11); BUN 16 mg/dL (7-18); Bilirubin, Total 0.5 mg/dL (0.2-1.0); CO2 25.2 mmol/L (21.0-32.0); CREATININE 0.97 mg/dL (0.70-1.30); Calcium 8.8 mg/dL (8.5-10.1); Chloride 105 mmol/L (98-107); Glucose 107 mg/dL (74-106); Potassium 3.9 mmol/L (3.5-5.1); Sodium 135 mmol/L (136-145); Total Protein 7.4 g/dL (6.4-8.2)
[2020-06-14 08:05] LABS: Absolute Eosinophil Count 0.16 10^3/uL (0.0-0.7); Absolute Lymphocyte Count 2.41 10^3/uL (1.2-3.4); Absolute Monocyte Count 1.36 10^3/uL (0.1-0.8); Absolute Neutrophil Count 4.09 10^3/uL (1.2-6.7); Atypical Lymphocytes % 6; Platelet Count 183 10^3/uL (130-400)
[2020-06-14 08:06] LABS: Diff Comment Manual Differential; RBC Morphology Normal
== END 2020-06-14 03:01 ==
PROVIDERS: PCP Nurse Practitioner; Visit Provider Internal Medicine Hematology & Oncology
DX: D69.3 Immune thrombocytopenic purpura (principal); F41.1 Generalized anxiety disorder
CPT/HCPCS: 36415; 80053; 85025

== ENCOUNTER 2020-08-17 07:31 | Outpatient (CLI) | payer OTHER, SELFPAY ==
[2020-08-17 12:20] LABS: Abs Immature Grans 0.05 10^3/uL (0.0-0.06); Absolute Eosinophil Count 0.19 10^3/uL (0.0-0.7); Absolute Lymphocyte Count 3.24 10^3/uL (1.2-3.4); Absolute Monocyte Count 1.07 10^3/uL (0.1-0.8); Absolute Neutrophil Count 4.63 10^3/uL (1.2-6.7); Basophils % 1.1; HCT 48.2 % (40.0-50.0); HGB 16.5 g/dL (13.5-17.5); Immature Grans % 0.5; Lymphocytes % 34.9; MCH 28.4 pg (27.0-33.0); MCHC 34.2 % (32.0-36.0); MCV 83.1 fL (80-95); MPV 13.6 fL (8.0-11.0); Monocytes % 11.5; Nucleated RBC 0 %; RDW 14.5 % (11.8-14.1); RDW-SD 43.6 fL; WBC 9.28 10^3/uL (4.4-10.8)
[2020-08-17 12:23] LABS: ALT 58 U/L (16-63); AST 29 U/L (15-37); Alkaline Phosphatase 82 U/L (46-116); Anion Gap 6.3 mmol/L (3-11); BUN 19 mg/dL (7-18); Bilirubin, Total 0.4 mg/dL (0.2-1.0); CO2 26.7 mmol/L (21.0-32.0); CREATININE 0.89 mg/dL (0.70-1.30); Calcium 9.1 mg/dL (8.5-10.1); Chloride 106 mmol/L (98-107); Glucose 130 mg/dL (74-106); Potassium 4.1 mmol/L (3.5-5.1); Sodium 139 mmol/L (136-145); Total Protein 7.6 g/dL (6.4-8.2)
[2020-08-17 12:34] LABS: Diff Comment Agrees w/ Instrument; Platelet Count 247 10^3/uL (130-400); RBC Morphology Normal
== END 2020-08-17 07:51 ==
PROVIDERS: PCP Nurse Practitioner; Visit Provider Internal Medicine Hematology & Oncology
DX: D69.3 Immune thrombocytopenic purpura (principal); F41.1 Generalized anxiety disorder
CPT/HCPCS: 36415; 80053; 85025

== ENCOUNTER 2020-09-20 08:16 | Outpatient (CLI) | payer OTHER, SELFPAY ==
[2020-09-20 09:00] LABS: Ferritin 225 ng/mL (26-388)
== END 2020-09-20 08:17 | disposition home or self-care (01) ==
PROVIDERS: PCP Nurse Practitioner; Visit Provider Nurse Practitioner
DX: M54.5 Low back pain (principal)
CPT/HCPCS: 36415; 82728

== ENCOUNTER 2020-11-16 03:32 | Outpatient (CLI) | payer OTHER, SELFPAY ==
[2020-11-16 08:43] LABS: Abs Immature Grans 0.04 10^3/uL (0.0-0.06); Absolute Basophil Count 0.06 10^3/uL (0.0-0.2); Absolute Lymphocyte Count 3.21 10^3/uL (1.2-3.4); Absolute Monocyte Count 1.25 10^3/uL (0.1-0.8); Absolute Neutrophil Count 5.76 10^3/uL (1.2-6.7); Basophils % 0.6; Eosinophils % 1.9; HGB 15.8 g/dL (13.5-17.5); Immature Grans % 0.4; Lymphocytes % 30.5; MCH 28.4 pg (27.0-33.0); MCHC 33.6 % (32.0-36.0); MCV 84.4 fL (80-95); MPV 13.2 fL (8.0-11.0); Monocytes % 11.9; Neutrophils % 54.7; Nucleated RBC 0 %; RBC 5.57 10^6/uL (4.36-5.78); RDW 14.2 % (11.8-14.1); RDW-SD 43.7 fL; WBC 10.52 10^3/uL (4.4-10.8)
[2020-11-16 09:05] LABS: Platelet Count 237 10^3/uL (130-400)
[2020-11-16 09:06] LABS: Anisocytosis 1+; Diff Comment Diff Reviewed; Microcytosis 1+; Poikilocytes 1+
[2020-11-16 09:13] LABS: Iron 113 ug/dL (65-175)
[2020-11-16 09:17] LABS: ALT 54 U/L (16-63); AST 37 U/L (15-37); Albumin 4.1 g/dL (3.4-5.0); Alkaline Phosphatase 75 U/L (46-116); BUN 17 mg/dL (7-18); Bilirubin, Total 0.7 mg/dL (0.2-1.0); CREATININE 0.9 mg/dL (0.70-1.30); Calcium 9.4 mg/dL (8.5-10.1); Chloride 104 mmol/L (98-107); Glucose 95 mg/dL (74-106); Potassium 4.5 mmol/L (3.5-5.1); Sodium 140 mmol/L (136-145); TSH (W/Ref FT4) 1.56 uIU/mL (0.36-3.74); Total Protein 7.5 g/dL (6.4-8.2)
== END 2020-11-16 03:33 | disposition home or self-care (01) ==
LOC: LBO 03:32
PROVIDERS: PCP Nurse Practitioner; Visit Provider Internal Medicine Hematology & Oncology
DX: F41.1 Generalized anxiety disorder (principal); D69.3 Immune thrombocytopenic purpura; I10 Essential (primary) hypertension; G47.61 Periodic limb movement disorder
CPT/HCPCS: 36415; 80053; 83540; 84443; 85025

== ENCOUNTER 2021-02-15 03:29 | Outpatient (CLI) | payer OTHER, SELFPAY ==
[2021-02-15 07:10] LABS: Abs Immature Grans 0.04 10^3/uL (0.0-0.06); HCT 47.3 % (40.0-50.0); HGB 15.7 g/dL (13.5-17.5); MCH 28.4 pg (27.0-33.0); MCHC 33.2 % (32.0-36.0); MCV 85.7 fL (80-95); MPV 12.9 fL (8.0-11.0); Nucleated RBC 0 %; Platelet Count 262 10^3/uL (130-400); RBC 5.52 10^6/uL (4.36-5.78); RDW 14.7 % (11.8-14.1); RDW-SD 46.5 fL; WBC 9.01 10^3/uL (4.4-10.8)
[2021-02-15 07:22] LABS: ALT 54 U/L (16-63); AST 28 U/L (15-37); Albumin 3.8 g/dL (3.4-5.0); Alkaline Phosphatase 68 U/L (46-116); Anion Gap 9.1 mmol/L (3-11); BUN 19 mg/dL (7-18); Bilirubin, Total 0.4 mg/dL (0.2-1.0); CO2 23.9 mmol/L (21.0-32.0); CREATININE 0.9 mg/dL (0.70-1.30); Calcium 8.8 mg/dL (8.5-10.1); Chloride 109 mmol/L (98-107); Glucose 110 mg/dL (74-106); Potassium 4.2 mmol/L (3.5-5.1); Sodium 142 mmol/L (136-145); Total Protein 7.3 g/dL (6.4-8.2)
[2021-02-15 07:33] LABS: Absolute Lymphocyte Count 2.97 10^3/uL (1.2-3.4); Absolute Neutrophil Count 5.14 10^3/uL (1.2-6.7); Atypical Lymphocytes % 15; Bands % 0
[2021-02-15 07:34] LABS: Diff Comment Manual Differential; RBC Morphology Normal
== END 2021-02-15 03:30 | disposition home or self-care (01) ==
PROVIDERS: PCP Nurse Practitioner; Visit Provider Internal Medicine Hematology & Oncology
DX: F41.1 Generalized anxiety disorder (principal); D69.3 Immune thrombocytopenic purpura
CPT/HCPCS: 36415; 80053; 85025

== ENCOUNTER 2021-04-10 13:11 | Outpatient (REF) | payer OTHER, SELFPAY ==
[2021-04-11 00:30] LABS: COVID-19 RT-PCR UVMMC Result Negative (Negative)
== END 2021-04-10 13:12 | disposition home or self-care (01) ==
LOC: LBO 13:11
PROVIDERS: PCP Nurse Practitioner; Visit Provider Nurse Practitioner Family
DX: Z20.822 Contact with and (suspected) exposure to COVID-19 (principal)
CPT/HCPCS: U0003

== ENCOUNTER 2021-04-19 07:57 | Outpatient (CLI) | payer OTHER, SELFPAY ==
[2021-04-19 08:22] LABS: Abs Immature Grans 0.02 10^3/uL (0.0-0.06); Absolute Monocyte Count 1.18 10^3/uL (0.1-0.8); HCT 48.1 % (40.0-50.0); HGB 16.2 g/dL (13.5-17.5); MCH 28.2 pg (27.0-33.0); MCHC 33.7 % (32.0-36.0); MCV 83.7 fL (80-95); MPV 12.8 fL (8.0-11.0); Nucleated RBC 0 %; RBC 5.75 10^6/uL (4.36-5.78); RDW 14.5 % (11.8-14.1); RDW-SD 43.9 fL
[2021-04-19 08:46] LABS: Absolute Lymphocyte Count 2.73 10^3/uL (1.2-3.4); Absolute Neutrophil Count 4.91 10^3/uL (1.2-6.7); Platelet Count 234 10^3/uL (130-400); WBC 9.09 10^3/uL (4.4-10.8)
[2021-04-19 08:47] LABS: Absolute Basophil Count 0.18 10^3/uL (0.0-0.2); Absolute Eosinophil Count 0.09 10^3/uL (0.0-0.7); Diff Comment Manual Differential; Poikilocytes 1+
[2021-04-19 09:49] LABS: ALT 51 U/L (16-63); AST 28 U/L (15-37); Albumin 4.2 g/dL (3.4-5.0); Alkaline Phosphatase 75 U/L (46-116); Anion Gap 9.2 mmol/L (3-11); BUN 16 mg/dL (7-18); Bilirubin, Total 0.4 mg/dL (0.2-1.0); CO2 26.8 mmol/L (21.0-32.0); Calcium 9.5 mg/dL (8.5-10.1); Chloride 104 mmol/L (98-107); Glucose 107 mg/dL (74-106); Potassium 4.7 mmol/L (3.5-5.1); Sodium 140 mmol/L (136-145); Total Protein 7.6 g/dL (6.4-8.2)
== END 2021-04-19 07:58 | disposition home or self-care (01) ==
LOC: LBO 07:59
PROVIDERS: PCP Nurse Practitioner; Visit Provider Internal Medicine Hematology & Oncology
DX: F41.1 Generalized anxiety disorder (principal); D69.3 Immune thrombocytopenic purpura
CPT/HCPCS: 36415; 80053; 85025

== ENCOUNTER 2021-07-05 03:31 | Outpatient (CLI) | payer OTHER, SELFPAY ==
[2021-07-05 08:10] LABS: HCT 50.1 % (40.0-50.0); HGB 16.5 g/dL (13.5-17.5); MCH 27.9 pg (27.0-33.0); MCHC 32.9 % (32.0-36.0); MCV 84.8 fL (80-95); MPV 13.2 fL (8.0-11.0); Nucleated RBC 0 %; RBC 5.91 10^6/uL (4.36-5.78); RDW 14.3 % (11.8-14.1); RDW-SD 44.3 fL
[2021-07-05 08:27] LABS: ALT 43 U/L (16-63); AST 26 U/L (15-37); Albumin 4.1 g/dL (3.4-5.0); Alkaline Phosphatase 69 U/L (46-116); Anion Gap 10.5 mmol/L (3-11); BUN 19 mg/dL (7-18); Bilirubin, Total 0.5 mg/dL (0.2-1.0); CO2 25.5 mmol/L (21.0-32.0); CREATININE 0.8 mg/dL (0.70-1.30); Calcium 9.1 mg/dL (8.5-10.1); Chloride 108 mmol/L (98-107); Glucose 110 mg/dL (74-106); Potassium 4.3 mmol/L (3.5-5.1); Sodium 144 mmol/L (136-145); Total Protein 7.9 g/dL (6.4-8.2)
[2021-07-05 08:31] LABS: Absolute Neutrophil Count 4.15 10^3/uL (1.2-6.7); Bands % 1; Platelet Count 226 10^3/uL (130-400)
[2021-07-05 08:32] LABS: Absolute Eosinophil Count 0.08 10^3/uL (0.0-0.7); Absolute Lymphocyte Count 3.24 10^3/uL (1.2-3.4); Absolute Monocyte Count 0.83 10^3/uL (0.1-0.8); Atypical Lymphocytes % 4; Diff Comment Manual Differential
[2021-07-05 08:33] LABS: Howell-Jolly Bodies Present; Poikilocytes 1+
== END 2021-07-05 03:32 | disposition home or self-care (01) ==
LOC: LBO 03:31
PROVIDERS: PCP Nurse Practitioner; Visit Provider Internal Medicine Hematology & Oncology
DX: D69.3 Immune thrombocytopenic purpura (principal)
CPT/HCPCS: 36415; 80053; 85025

== ENCOUNTER 2021-08-07 13:50 | Outpatient (CLI) | payer OTHER, SELFPAY ==
[2021-08-07 13:15] LABS: HCT 47.1 % (40.0-50.0); HGB 15.5 g/dL (13.5-17.5); MCHC 32.9 % (32.0-36.0); Nucleated RBC 0 %; RBC 5.54 10^6/uL (4.36-5.78); RDW 14.2 % (11.8-14.1); WBC 10.98 10^3/uL (4.4-10.8)
[2021-08-07 13:50] LABS: Absolute Lymphocyte Count 3.07 10^3/uL (1.2-3.4); Absolute Neutrophil Count 6.81 10^3/uL (1.2-6.7); Atypical Lymphocytes % 9
[2021-08-07 13:51] LABS: Diff Comment Manual Differential; Platelet Count 227 10^3/uL (130-400)
[2021-08-07 14:17] LABS: ALT 51 U/L (16-63); AST 34 U/L (15-37); Albumin 4.2 g/dL (3.4-5.0); Alkaline Phosphatase 76 U/L (46-116); Anion Gap 9.3 mmol/L (3-11); BUN 24 mg/dL (7-18); Bilirubin, Total 0.4 mg/dL (0.2-1.0); CO2 24.7 mmol/L (21.0-32.0); Calcium 9.2 mg/dL (8.5-10.1); Chloride 105 mmol/L (98-107); Glucose 112 mg/dL (74-106); Potassium 4.4 mmol/L (3.5-5.1); Sodium 139 mmol/L (136-145); Total Protein 7.5 g/dL (6.4-8.2)
== END 2021-08-07 13:51 | disposition home or self-care (01) ==
LOC: LBO 13:52
PROVIDERS: PCP Nurse Practitioner; Visit Provider Internal Medicine Hematology & Oncology
DX: D69.3 Immune thrombocytopenic purpura (principal)
CPT/HCPCS: 36415; 80053; 85025

== ENCOUNTER 2021-08-22 03:16 | Outpatient (CLI) | payer OTHER, SELFPAY ==
[2021-08-22 09:59] LABS: Calculated LDL 180 mg/dL (<100); Cholesterol 262 mg/dL (<200); HDL Cholesterol 46 mg/dL (40-60); Triglyceride 180 mg/dL (<150)
== END 2021-08-22 03:17 | disposition home or self-care (01) ==
LOC: LBO 03:17
PROVIDERS: PCP Nurse Practitioner; Visit Provider Nurse Practitioner
DX: Z13.220 Encounter for screening for lipoid disorders (principal)
CPT/HCPCS: 36415; 80061

== ENCOUNTER 2022-01-24 03:40 | Outpatient (CLI) | payer OTHER, SELFPAY ==
[2022-01-24 10:57] LABS: Abs Immature Grans 0.03 10^3/uL (0.0-0.06); Absolute Basophil Count 0.08 10^3/uL (0.0-0.2); Absolute Eosinophil Count 0.16 10^3/uL (0.0-0.7); Absolute Lymphocyte Count 3.52 10^3/uL (1.2-3.4); Absolute Monocyte Count 1.21 10^3/uL (0.1-0.8); Absolute Neutrophil Count 5.48 10^3/uL (1.2-6.7); Basophils % 0.8; Eosinophils % 1.5; HCT 47.4 % (40.0-50.0); HGB 16.1 g/dL (13.5-17.5); Immature Grans % 0.3; Lymphocytes % 33.6; MCH 28.4 pg (27.0-33.0); MCV 84 fL (80-95); Monocytes % 11.5; Neutrophils % 52.3; RBC 5.66 10^6/uL (4.36-5.78); RDW 14.4 % (11.8-14.1); RDW-SD 43.7 fL; WBC 10.48 10^3/uL (4.4-10.8)
[2022-01-24 11:20] LABS: Diff Comment Agrees w/ Instrument; RBC Morphology Normal
[2022-01-24 11:24] LABS: Howell-Jolly Bodies Present
[2022-01-24 11:25] LABS: Platelet Count 119 10^3/uL (130-400)
[2022-01-24 11:36] LABS: ALT 43 U/L (16-63); AST 28 U/L (15-37); Albumin 4.1 g/dL (3.4-5.0); Alkaline Phosphatase 69 U/L (46-116); Anion Gap 10.7 mmol/L (3-11); BUN 16 mg/dL (7-18); Bilirubin, Total 0.5 mg/dL (0.2-1.0); CO2 26.3 mmol/L (21.0-32.0); CREATININE 0.9 mg/dL (0.70-1.30); Calcium 9.4 mg/dL (8.5-10.1); Chloride 103 mmol/L (98-107); Glucose 100 mg/dL (74-106); Potassium 4.2 mmol/L (3.5-5.1); Sodium 140 mmol/L (136-145); Total Protein 7.8 g/dL (6.4-8.2)
== END 2022-01-24 03:41 | disposition home or self-care (01) ==
LOC: LBO 03:40
PROVIDERS: PCP Nurse Practitioner; Visit Provider Internal Medicine Hematology & Oncology
DX: D69.3 Immune thrombocytopenic purpura (principal)
CPT/HCPCS: 36415; 80053; 85025

== ENCOUNTER 2022-02-06 13:04 | Outpatient (CLI) | payer OTHER, SELFPAY ==
[2022-02-06 11:06] LABS: Abs Immature Grans 0.07 10^3/uL (0.0-0.06); HGB 16.1 g/dL (13.5-17.5); MCH 28.4 pg (27.0-33.0); MCHC 33.5 % (32.0-36.0); MCV 85 fL (80-95); RBC 5.67 10^6/uL (4.36-5.78); RDW 14.5 % (11.8-14.1); RDW-SD 43.7 fL; WBC 16.74 10^3/uL (4.4-10.8)
[2022-02-06 11:16] LABS: ALT 44 U/L (16-63); AST 26 U/L (15-37); Albumin 4.1 g/dL (3.4-5.0); Alkaline Phosphatase 72 U/L (46-116); Anion Gap 8.1 mmol/L (3-11); BUN 15 mg/dL (7-18); Bilirubin, Total 0.4 mg/dL (0.2-1.0); CO2 25.9 mmol/L (21.0-32.0); Calcium 9.1 mg/dL (8.5-10.1); Chloride 103 mmol/L (98-107); Glucose 106 mg/dL (74-106); Potassium 3.9 mmol/L (3.5-5.1); Sodium 137 mmol/L (136-145); Total Protein 7.7 g/dL (6.4-8.2)
[2022-02-06 11:40] LABS: Absolute Lymphocyte Count 3.18 10^3/uL (1.2-3.4); Absolute Monocyte Count 1.84 10^3/uL (0.1-0.8); Absolute Neutrophil Count 11.22 10^3/uL (1.2-6.7); Atypical Lymphocytes % 1; Diff Comment Manual Differential; Platelet Count 91 10^3/uL (130-400)
[2022-02-06 11:41] LABS: Howell-Jolly Bodies Present; Target Cells 2+
[2022-02-06 11:42] LABS: Poikilocytes 1+
== END 2022-02-06 13:05 | disposition home or self-care (01) ==
LOC: LBO 13:05
PROVIDERS: PCP Nurse Practitioner; Visit Provider Internal Medicine Hematology & Oncology
DX: D69.3 Immune thrombocytopenic purpura (principal)
CPT/HCPCS: 36415; 80053; 85025

== ENCOUNTER 2022-02-07 02:04 | Outpatient (CLI) | payer OTHER, SELFPAY ==
[2022-02-07 09:47] LABS: Calculated LDL 123 mg/dL (<100); Cholesterol 192 mg/dL (<200); HDL Cholesterol 48 mg/dL (40-60); Triglyceride 106 mg/dL (<150)
== END 2022-02-07 02:05 | disposition home or self-care (01) ==
LOC: LBO 02:04
PROVIDERS: PCP Nurse Practitioner; Visit Provider Internal Medicine Hematology & Oncology
DX: Z13.220 Encounter for screening for lipoid disorders (principal)
CPT/HCPCS: 36415; 80061

== ENCOUNTER 2022-02-14 01:55 | Outpatient (CLI) | payer OTHER, SELFPAY ==
[2022-02-14 09:03] LABS: Abs Immature Grans 0.03 10^3/uL (0.0-0.06); Absolute Basophil Count 0.08 10^3/uL (0.0-0.2); Absolute Eosinophil Count 0.11 10^3/uL (0.0-0.7); Absolute Lymphocyte Count 2.65 10^3/uL (1.2-3.4); Absolute Monocyte Count 1.18 10^3/uL (0.1-0.8); Absolute Neutrophil Count 4.89 10^3/uL (1.2-6.7); Basophils % 0.9; Eosinophils % 1.2; HCT 44.9 % (40.0-50.0); HGB 15.3 g/dL (13.5-17.5); Immature Grans % 0.3; Lymphocytes % 29.6; MCH 28.8 pg (27.0-33.0); MCHC 34.1 % (32.0-36.0); MCV 84 fL (80-95); Monocytes % 13.2; Neutrophils % 54.8; Platelet Count 88 10^3/uL (130-400); RBC 5.32 10^6/uL (4.36-5.78); RDW 14.3 % (11.8-14.1); RDW-SD 43.9 fL; WBC 8.94 10^3/uL (4.4-10.8)
[2022-02-14 09:19] LABS: ALT 43 U/L (16-63); AST 33 U/L (15-37); Alkaline Phosphatase 61 U/L (46-116); Anion Gap 6.6 mmol/L (3-11); BUN 15 mg/dL (7-18); Bilirubin, Total 0.7 mg/dL (0.2-1.0); CO2 26.4 mmol/L (21.0-32.0); CREATININE 0.9 mg/dL (0.70-1.30); Calcium 8.8 mg/dL (8.5-10.1); Chloride 103 mmol/L (98-107); Glucose 98 mg/dL (74-106); Potassium 3.7 mmol/L (3.5-5.1); Sodium 136 mmol/L (136-145); Total Protein 7.4 g/dL (6.4-8.2)
== END 2022-02-14 01:56 | disposition home or self-care (01) ==
LOC: LBO 01:55
PROVIDERS: PCP Nurse Practitioner; Visit Provider Internal Medicine Hematology & Oncology
DX: D69.3 Immune thrombocytopenic purpura (principal)
CPT/HCPCS: 36415; 80053; 85025

== ENCOUNTER 2022-02-28 03:21 | Outpatient (CLI) | payer OTHER, SELFPAY ==
[2022-02-28 07:15] LABS: Abs Immature Grans 0.03 10^3/uL (0.0-0.06); Absolute Basophil Count 0.09 10^3/uL (0.0-0.2); Absolute Eosinophil Count 0.23 10^3/uL (0.0-0.7); Absolute Lymphocyte Count 2.67 10^3/uL (1.2-3.4); Absolute Monocyte Count 1.23 10^3/uL (0.1-0.8); Absolute Neutrophil Count 5.07 10^3/uL (1.2-6.7); Eosinophils % 2.5; HCT 48.6 % (40.0-50.0); Immature Grans % 0.3; Lymphocytes % 28.6; MCH 28.2 pg (27.0-33.0); MCHC 32.9 % (32.0-36.0); MCV 86 fL (80-95); Monocytes % 13.2; Neutrophils % 54.4; RBC 5.67 10^6/uL (4.36-5.78); RDW 14.6 % (11.8-14.1); RDW-SD 45.8 fL; WBC 9.32 10^3/uL (4.4-10.8)
[2022-02-28 07:37] LABS: BUN 18 mg/dL (7-18); Calcium 8.8 mg/dL (8.5-10.1); Diff Comment Agrees w/ Instrument; Glucose 108 mg/dL (74-106); Platelet Count 106 10^3/uL (130-400); RBC Morphology Normal; Total Protein 7.3 g/dL (6.4-8.2)
[2022-02-28 07:38] LABS: ALT 41 U/L (16-63); AST 26 U/L (15-37); Albumin 3.9 g/dL (3.4-5.0); Alkaline Phosphatase 62 U/L (46-116); Anion Gap 7.2 mmol/L (3-11); Bilirubin, Total 0.3 mg/dL (0.2-1.0); CO2 28.8 mmol/L (21.0-32.0); Chloride 106 mmol/L (98-107); Potassium 4.4 mmol/L (3.5-5.1); Sodium 142 mmol/L (136-145)
== END 2022-02-28 03:22 | disposition home or self-care (01) ==
LOC: LBO 03:21
PROVIDERS: PCP Nurse Practitioner; Visit Provider Internal Medicine Hematology & Oncology
DX: D69.3 Immune thrombocytopenic purpura (principal)
CPT/HCPCS: 36415; 80053; 85025

== ENCOUNTER 2022-06-06 02:18 | Outpatient (CLI) | payer OTHER, SELFPAY ==
[2022-06-06 08:37] LABS: Abs Immature Grans 0.06 10^3/uL (0.0-0.06); Absolute Basophil Count 0.09 10^3/uL (0.0-0.2); Absolute Eosinophil Count 0.19 10^3/uL (0.0-0.7); Absolute Lymphocyte Count 3.38 10^3/uL (1.2-3.4); Absolute Monocyte Count 1.08 10^3/uL (0.1-0.8); Absolute Neutrophil Count 8.67 10^3/uL (1.2-6.7); Basophils % 0.7; Eosinophils % 1.4; HCT 48.6 % (40.0-50.0); HGB 16.3 g/dL (13.5-17.5); Immature Grans % 0.4; Lymphocytes % 25.1; MCH 28.5 pg (27.0-33.0); MCHC 33.5 % (32.0-36.0); MCV 85 fL (80-95); Neutrophils % 64.4; Platelet Count 156 10^3/uL (130-400); RBC 5.72 10^6/uL (4.36-5.78); RDW 13.9 % (11.8-14.1); RDW-SD 42.9 fL; WBC 13.47 10^3/uL (4.4-10.8)
== END 2022-06-06 02:19 | disposition home or self-care (01) ==
LOC: LBO 02:18
PROVIDERS: PCP Nurse Practitioner; Visit Provider Internal Medicine Hematology & Oncology
DX: D69.3 Immune thrombocytopenic purpura (principal)
CPT/HCPCS: 36415; 85025

== ENCOUNTER 2022-06-20 03:56 | Outpatient (CLI) | payer OTHER, SELFPAY ==
[2022-06-20 08:19] LABS: Abs Immature Grans 0.04 10^3/uL (0.0-0.06); Absolute Basophil Count 0.09 10^3/uL (0.0-0.2); Absolute Lymphocyte Count 2.77 10^3/uL (1.2-3.4); Absolute Monocyte Count 1.17 10^3/uL (0.1-0.8); Absolute Neutrophil Count 4.72 10^3/uL (1.2-6.7); Eosinophils % 3.3; HCT 47.9 % (40.0-50.0); Immature Grans % 0.4; Lymphocytes % 30.5; MCH 28.2 pg (27.0-33.0); MCHC 33.4 % (32.0-36.0); MCV 85 fL (80-95); Monocytes % 12.9; Neutrophils % 51.9; RBC 5.67 10^6/uL (4.36-5.78); RDW 14.4 % (11.8-14.1); RDW-SD 44.4 fL; WBC 9.09 10^3/uL (4.4-10.8)
[2022-06-20 08:34] LABS: Platelet Count 57 10^3/uL (130-400)
== END 2022-06-20 03:57 | disposition home or self-care (01) ==
LOC: LBO 03:56
PROVIDERS: PCP Nurse Practitioner; Visit Provider Internal Medicine Hematology & Oncology
DX: D69.3 Immune thrombocytopenic purpura (principal)
CPT/HCPCS: 36415; 85025

== ENCOUNTER 2022-07-05 03:21 | Outpatient (CLI) | payer OTHER, SELFPAY ==
[2022-07-05 07:57] LABS: Abs Immature Grans 0.02 10^3/uL (0.0-0.06); Absolute Basophil Count 0.11 10^3/uL (0.0-0.2); Absolute Eosinophil Count 0.18 10^3/uL (0.0-0.7); Absolute Lymphocyte Count 3.13 10^3/uL (1.2-3.4); Absolute Monocyte Count 1.49 10^3/uL (0.1-0.8); Basophils % 1.2; HCT 47.3 % (40.0-50.0); HGB 15.6 g/dL (13.5-17.5); Immature Grans % 0.2; Lymphocytes % 34.3; MCH 28.1 pg (27.0-33.0); MCV 85 fL (80-95); Monocytes % 16.3; RBC 5.55 10^6/uL (4.36-5.78); RDW 14.8 % (11.8-14.1); RDW-SD 45.8 fL; WBC 9.13 10^3/uL (4.4-10.8)
[2022-07-05 08:24] LABS: Platelet Count 67 10^3/uL (130-400)
== END 2022-07-05 03:22 | disposition home or self-care (01) ==
LOC: LBO 03:21
PROVIDERS: PCP Nurse Practitioner; Visit Provider Internal Medicine Hematology & Oncology
DX: D69.3 Immune thrombocytopenic purpura (principal)
CPT/HCPCS: 36415; 85025

== ENCOUNTER 2022-07-31 02:40 | Outpatient (CLI) | payer OTHER, SELFPAY ==
[2022-07-31 12:38] LABS: Abs Immature Grans 0.04 10^3/uL (0.0-0.06); Absolute Basophil Count 0.12 10^3/uL (0.0-0.2); HGB 16.2 g/dL (13.5-17.5); MCH 28.6 pg (27.0-33.0); MCHC 33.8 % (32.0-36.0); MCV 85 fL (80-95); MPV 14.3 fL (8.0-11.0); RBC 5.67 10^6/uL (4.36-5.78); RDW 14.4 % (11.8-14.1); RDW-SD 44.1 fL; WBC 12.08 10^3/uL (4.4-10.8)
[2022-07-31 13:07] LABS: Absolute Lymphocyte Count 1.45 10^3/uL (1.2-3.4); Absolute Monocyte Count 2.66 10^3/uL (0.1-0.8); Absolute Neutrophil Count 7.25 10^3/uL (1.2-6.7); Platelet Count 42 10^3/uL (130-400)
[2022-07-31 13:08] LABS: Diff Comment Manual Differential; RBC Morphology Normal
== END 2022-07-31 02:41 | disposition home or self-care (01) ==
LOC: LBO 02:43
PROVIDERS: PCP Nurse Practitioner; Visit Provider Internal Medicine Hematology & Oncology
DX: D69.3 Immune thrombocytopenic purpura (principal)
CPT/HCPCS: 36415; 85025

== ENCOUNTER 2022-08-08 02:08 | Outpatient (CLI) | payer OTHER, SELFPAY ==
[2022-08-08 08:11] LABS: Abs Immature Grans 0.06 10^3/uL (0.0-0.06); Absolute Basophil Count 0.13 10^3/uL (0.0-0.2); Absolute Eosinophil Count 0.12 10^3/uL (0.0-0.7); Absolute Lymphocyte Count 2.54 10^3/uL (1.2-3.4); Absolute Monocyte Count 1.33 10^3/uL (0.1-0.8); Absolute Neutrophil Count 4.67 10^3/uL (1.2-6.7); Basophils % 1.5; Eosinophils % 1.4; HCT 49.7 % (40.0-50.0); HGB 16.7 g/dL (13.5-17.5); Immature Grans % 0.7; Lymphocytes % 28.7; MCH 28.4 pg (27.0-33.0); MCHC 33.6 % (32.0-36.0); MCV 85 fL (80-95); MPV 12.1 fL (8.0-11.0); Neutrophils % 52.7; Platelet Count 430 10^3/uL (130-400); RBC 5.87 10^6/uL (4.36-5.78); RDW-SD 45.7 fL; WBC 8.85 10^3/uL (4.4-10.8)
[2022-08-09 08:18] LABS: HBs Antibody, Quant >1000.0 mIU/mL (See Note); Hepatitis B Surface Ab Positive (See Note)
[2022-08-09 09:04] LABS: HIV-1/2 Ag & Ab Screen Negative (Negative)
[2022-08-09 10:02] LABS: Hep B Core Antibody Positive (Negative)
[2022-08-09 10:26] LABS: Hepatitis B Surface Ag Negative (Negative)
[2022-08-09 10:55] LABS: Hepatitis C Ab w Rflx HCV PCR Negative (Negative)
== END 2022-08-08 02:09 | disposition home or self-care (01) ==
PROVIDERS: PCP Nurse Practitioner; Visit Provider Internal Medicine Hematology & Oncology
DX: D69.3 Immune thrombocytopenic purpura (principal); Z11.4 Encounter for screening for human immunodeficiency virus [HIV]; Z11.59 Encounter for screening for other viral diseases
CPT/HCPCS: 36415; 86704; 86706; 86803; 87340; 87389; 85025

== ENCOUNTER 2022-08-15 02:10 | Outpatient (RCR) | payer OTHER, SELFPAY ==
[2022-08-02] VITALS (8 sets, daily range): BP systolic 123–144; BP diastolic 78–83; PULSE 78–88; RESP 16–17; TEMP 36.5–36.8; O2SAT 95–96
[2022-08-02] MEDS: diphenhydrAMINE 25 MG CAP 50 MG PO (11:00)
[2022-08-02] MEDS: Acetaminophen 325 MG TAB 650 MG PO (11:00)
[2022-08-02] MEDS: IMMUNE GLOBULIN 20 GM/200 ML BTL IV (11:14)
[2022-08-02] MEDS: Normal Saline Flush 10 ML SYR IVP (11:15)
[2022-08-02] MEDS: IMMUNE GLOBULIN 40 GM/400 ML BTL IVPB ×2 (12:24→13:27)
[2022-08-02] MEDS: IMMUNE GLOBULIN 5 GM/50 ML BTL IVPB (14:30)
[2022-08-03] VITALS (7 sets, daily range): BP systolic 129–145; BP diastolic 76–90; PULSE 83–95; RESP 16; TEMP 36.5–36.8; O2SAT 93–98
[2022-08-03 09:00] LABS: HBs Antibody, Quant 33.5 mIU/mL (See Note); Hepatitis B Surface Ab Positive (See Note)
[2022-08-03 09:03] LABS: Hepatitis B Surface Ag Negative (Negative)
[2022-08-03 09:40] LABS: Hep B Core Antibody Negative (Negative)
[2022-08-03 09:43] LABS: HIV-1/2 Ag & Ab Screen Negative (Negative)
[2022-08-03 10:48] LABS: Hepatitis C Ab w Rflx HCV PCR Negative (Negative)
[2022-08-03] MEDS: Acetaminophen 325 MG TAB 650 MG PO (11:29)
[2022-08-03] MEDS: diphenhydrAMINE 25 MG CAP 50 MG PO (11:29)
[2022-08-03] MEDS: IMMUNE GLOBULIN 5 GM/50 ML BTL IVPB (11:39)
[2022-08-03] MEDS: IMMUNE GLOBULIN 20 GM/200 ML BTL IV (12:03)
[2022-08-03] MEDS: IMMUNE GLOBULIN 40 GM/400 ML BTL IVPB ×2 (12:56→13:57)
[2022-08-15 09:18] LABS: Abs Immature Grans 0.06 10^3/uL (0.0-0.06); Absolute Basophil Count 0.09 10^3/uL (0.0-0.2); Absolute Eosinophil Count 0.52 10^3/uL (0.0-0.7); Absolute Lymphocyte Count 3.67 10^3/uL (1.2-3.4); Absolute Monocyte Count 1.38 10^3/uL (0.1-0.8); Absolute Neutrophil Count 4.18 10^3/uL (1.2-6.7); Basophils % 0.9; Eosinophils % 5.3; HCT 49.4 % (40.0-50.0); HGB 16.6 g/dL (13.5-17.5); Immature Grans % 0.6; Lymphocytes % 37.1; MCH 28.7 pg (27.0-33.0); MCHC 33.6 % (32.0-36.0); MCV 85 fL (80-95); Monocytes % 13.9; Neutrophils % 42.2; RBC 5.79 10^6/uL (4.36-5.78); RDW 15.1 % (11.8-14.1); RDW-SD 47.2 fL
[2022-08-15 09:37] LABS: Diff Comment Agrees w/ Instrument; Platelet Count 353 10^3/uL (130-400); RBC Morphology Normal
== END 2022-08-18 23:59 | disposition home or self-care (01) ==
LOC: INF 02:10
PROVIDERS: PCP Nurse Practitioner; Visit Provider Internal Medicine Hematology & Oncology
DX: D69.3 Immune thrombocytopenic purpura (principal)
CPT/HCPCS: 36415; 86704; 86706; 86803; 87340; 87389; 96365; 96366; 85025; J1459

== ENCOUNTER 2022-09-12 01:46 | Outpatient (RCR) | payer OTHER, SELFPAY ==
[2022-08-19 00:13] VITALS: BP 136/87; PULSE 95; RESP 16; TEMP 36.6
[2022-08-22 07:30] LABS: Abs Immature Grans 0.04 10^3/uL (0.0-0.06); Absolute Basophil Count 0.11 10^3/uL (0.0-0.2); Absolute Eosinophil Count 0.27 10^3/uL (0.0-0.7); Absolute Lymphocyte Count 3.86 10^3/uL (1.2-3.4); Absolute Monocyte Count 1.53 10^3/uL (0.1-0.8); Absolute Neutrophil Count 4.44 10^3/uL (1.2-6.7); Basophils % 1.1; Eosinophils % 2.6; HCT 49.4 % (40.0-50.0); HGB 16.5 g/dL (13.5-17.5); Immature Grans % 0.4; Lymphocytes % 37.7; MCH 28.4 pg (27.0-33.0); MCHC 33.4 % (32.0-36.0); MCV 85 fL (80-95); Monocytes % 14.9; Neutrophils % 43.3; RDW 14.8 % (11.8-14.1); RDW-SD 45.7 fL; WBC 10.25 10^3/uL (4.4-10.8)
[2022-08-22 07:52] LABS: Platelet Count 200 10^3/uL (130-400)
[2022-08-22 07:53] LABS: Diff Comment Agrees w/ Instrument; RBC Morphology Normal
[2022-08-29 07:50] LABS: Abs Immature Grans 0.03 10^3/uL (0.0-0.06); Absolute Eosinophil Count 0.18 10^3/uL (0.0-0.7); Absolute Lymphocyte Count 3.13 10^3/uL (1.2-3.4); Basophils % 1.1; HCT 48.2 % (40.0-50.0); HGB 16.2 g/dL (13.5-17.5); Immature Grans % 0.3; MCH 28.5 pg (27.0-33.0); MCHC 33.6 % (32.0-36.0); MCV 85 fL (80-95); Monocytes % 13.4; Neutrophils % 48.2; RBC 5.68 10^6/uL (4.36-5.78); RDW 14.5 % (11.8-14.1); WBC 8.94 10^3/uL (4.4-10.8)
[2022-08-29 08:13] LABS: Diff Comment Diff Reviewed; Platelet Count 44 10^3/uL (130-400); RBC Morphology Normal
[2022-08-31 07:45] LABS: Abs Immature Grans 0.02 10^3/uL (0.0-0.06); Absolute Eosinophil Count 0.17 10^3/uL (0.0-0.7); Absolute Lymphocyte Count 2.89 10^3/uL (1.2-3.4); Absolute Neutrophil Count 4.27 10^3/uL (1.2-6.7); Basophils % 1.1; Eosinophils % 1.9; HCT 49.1 % (40.0-50.0); HGB 16.6 g/dL (13.5-17.5); Immature Grans % 0.2; MCH 28.7 pg (27.0-33.0); MCHC 33.8 % (32.0-36.0); MCV 85 fL (80-95); Monocytes % 14.9; Neutrophils % 48.9; RBC 5.79 10^6/uL (4.36-5.78); RDW 14.6 % (11.8-14.1); RDW-SD 44.6 fL; WBC 8.75 10^3/uL (4.4-10.8)
[2022-08-31 07:52] LABS: Diff Comment Diff Reviewed; Platelet Count 33 10^3/uL (130-400); RBC Morphology Normal
[2022-09-03 07:51] LABS: Abs Immature Grans 0.03 10^3/uL (0.0-0.06); Absolute Basophil Count 0.09 10^3/uL (0.0-0.2); Absolute Eosinophil Count 0.14 10^3/uL (0.0-0.7); Absolute Lymphocyte Count 2.66 10^3/uL (1.2-3.4); Absolute Monocyte Count 0.97 10^3/uL (0.1-0.8); Absolute Neutrophil Count 4.31 10^3/uL (1.2-6.7); Basophils % 1.1; Eosinophils % 1.7; HCT 49.6 % (40.0-50.0); HGB 16.5 g/dL (13.5-17.5); Immature Grans % 0.4; Lymphocytes % 32.4; MCH 28.4 pg (27.0-33.0); MCHC 33.3 % (32.0-36.0); MCV 85 fL (80-95); Monocytes % 11.8; Neutrophils % 52.6; RBC 5.82 10^6/uL (4.36-5.78); RDW 14.4 % (11.8-14.1); RDW-SD 44.4 fL
[2022-09-03 08:22] LABS: Diff Comment PLT Morph Reviewed; Platelet Count 35 10^3/uL (130-400); RBC Morphology Normal
[2022-09-05 07:54] LABS: Abs Immature Grans 0.04 10^3/uL (0.0-0.06); Absolute Eosinophil Count 0.19 10^3/uL (0.0-0.7); Absolute Lymphocyte Count 3.05 10^3/uL (1.2-3.4); Absolute Monocyte Count 1.25 10^3/uL (0.1-0.8); Basophils % 1.1; Eosinophils % 2.2; HGB 16.6 g/dL (13.5-17.5); Immature Grans % 0.5; Lymphocytes % 34.5; MCH 28.9 pg (27.0-33.0); MCHC 33.9 % (32.0-36.0); MCV 85 fL (80-95); Monocytes % 14.2; Neutrophils % 47.5; RBC 5.74 10^6/uL (4.36-5.78); RDW 14.4 % (11.8-14.1); RDW-SD 44.7 fL; WBC 8.83 10^3/uL (4.4-10.8)
[2022-09-05 08:26] LABS: Diff Comment Diff Reviewed; Platelet Count 46 10^3/uL (130-400); RBC Morphology Normal
[2022-09-12 08:01] LABS: Abs Immature Grans 0.03 10^3/uL (0.0-0.06); Absolute Lymphocyte Count 2.91 10^3/uL (1.2-3.4); Absolute Monocyte Count 1.09 10^3/uL (0.1-0.8); Absolute Neutrophil Count 4.68 10^3/uL (1.2-6.7); Basophils % 1.1; Eosinophils % 3.3; HCT 49.3 % (40.0-50.0); HGB 16.3 g/dL (13.5-17.5); Immature Grans % 0.3; Lymphocytes % 31.9; MCH 28.3 pg (27.0-33.0); MCHC 33.1 % (32.0-36.0); MCV 86 fL (80-95); Neutrophils % 51.4; Platelet Count 121 10^3/uL (130-400); RBC 5.76 10^6/uL (4.36-5.78); RDW 14.5 % (11.8-14.1); RDW-SD 45.3 fL; WBC 9.11 10^3/uL (4.4-10.8)
== END 2022-09-18 23:59 | disposition home or self-care (01) ==
LOC: INF 01:46
PROVIDERS: PCP Nurse Practitioner; Visit Provider Internal Medicine Hematology & Oncology
DX: D69.3 Immune thrombocytopenic purpura (principal)
CPT/HCPCS: 36415; 85025

== ENCOUNTER 2022-09-18 01:33 | Outpatient (CLI) | payer OTHER, SELFPAY ==
--- NOTE | 2022-09-18 | DI.CT_ITS ---
Exam(s) CT CHEST/ABD/PEL W EXAM: CT CHEST/ABD/PEL W CLINICAL HISTORY: IDIOPATHIC THROMBOCYSTOPENIC PURPURA,D69.3,S/P SPLENECTOMY TECHNIQUE: Imaging Protocol: Axial computed tomography images with coronal and sagittal reformatted images were created and reviewed CONTRAST MATERIAL: Intravenous: Omnipaque 350 contrast volume:100 mL Oral: Yes COMPARISON: None. FINDINGS: CHEST: Tracheobronchial tree: Patent where visualized. Pulmonary parenchyma: There is a 3 mm nodule in the right middle lobe. There is a 3 mm nodule in the medial aspect of the right lower lobe. There is a 3 mm nodule in the lateral aspect of the left low er lobe. No focal consolidating infiltrates are seen. Visualized thyroid gland: Unremarkable. Mediastinum and Dot: No dominant adenopathy or fluid collection. The esophagus is unremarkable. Pleura: No effusion or pneumothorax. Heart: The heart is not dilated. No coronary artery calcifications are seen. No pericardial effusion. Pulmonary arteries: Pulmonary arteries are not adequately opacified for evaluation of pulmonary embol i. Aorta: Thoracic aorta non-dilated. Lymph nodes: Within normal limits. Soft tissues: Mild gynecomastia. Bones:Within normal limits for the patient's age. ABDOMEN: Liver: Normal density. No measurable mass. Portal, Superior Mesenteric, and Splenic Veins: Unremarkable. Gallbladder and Biliary Tract: No radiodense calculus or dilation. Pancreas: Normal density, no abnormal calcifications or inflammatory process. Spleen: Status post splenectomy. Adrenals: No masses seen. Kidneys: Normal size, contour and axis. There is a nonobstructing 3 mm stone in the lower pole of the left kidney. There are few tiny hypodensities in the left kidney. They are too small for further c haracterization but likely reflect small cysts. No follow-up is recommended. Abdominal Aorta: Abdominal portion non-dilated. Bowel: No obstruction or bowel wall thickening. No evidence of appendicitis. Peritoneal Cavity: No ascites, collection or mesenteric inflammatory response. No free air. Lymph Nodes: Within normal limits. Bones: Within normal limits for the patient's age. Soft Tissues: Unremarkable. PELVIS: Bladder: Symmetric distention, no gross wall thickening. Reproductive Organs: Unremarkable as visualized. Lymph Nodes: Within normal limits. Bones: Within normal limits. IMPRESSION: 1. No acute chest, abdominal or pelvic process. 2. 3 mm pulmonary nodules. A follow-up CT scan of the chest in 6-12 months may be obtained for furth er evaluation. 3. Status post splenectomy. 4. Left nephrolithiasis. No hydronephrosis. RADIATION DOSE DELIVERED: 1,569.64mGy.cm Total DLP DATA REPOSITORY: All CT scans at this facility are submitted to the National Radiology Data Registry (NRDR) Dose Index Registry (DIR) with the [employer] ([employer]). RADIATION OPTIMIZATION: All CT scans at this facility use at least one of these dose optimization te chniques: automated exposure control; mA and/or kV adjustment per patient size (includes targeted exa ms where dose is matched to clinical indication); or iterative reconstruction.
[2022-09-18 09:19] LABS: HCT 47.6 % (40.0-50.0); HGB 15.7 g/dL (13.5-17.5); MCH 28.4 pg (27.0-33.0); MCV 86 fL (80-95); Platelet Count 127 10^3/uL (130-400); RBC 5.52 10^6/uL (4.36-5.78); RDW 14.6 % (11.8-14.1); RDW-SD 46.5 fL
[2022-09-18 09:40] LABS: ALT 52 U/L (16-63); AST 53 U/L (15-37); Alkaline Phosphatase 69 U/L (46-116); Anion Gap 5.7 mmol/L (3-11); BUN 11 mg/dL (7-18); Bilirubin, Total 0.4 mg/dL (0.2-1.0); CO2 29.3 mmol/L (21.0-32.0); Calcium 9.7 mg/dL (8.5-10.1); Chloride 106 mmol/L (98-107); Estimated GFR 96.97 (mL/min/1.73m2); Glucose 110 mg/dL (74-106); Potassium 4.6 mmol/L (3.5-5.1); Sodium 141 mmol/L (136-145); Total Protein 7.7 g/dL (6.4-8.2)
[2022-09-18 09:47] LABS: Absolute Neutrophil Count 4.59 10^3/uL (1.2-6.7)
[2022-09-18 09:48] LABS: Absolute Basophil Count 0.17 10^3/uL (0.0-0.2); Absolute Eosinophil Count 0.26 10^3/uL (0.0-0.7); Absolute Lymphocyte Count 2.89 10^3/uL (1.2-3.4); Atypical Lymphocytes % 12; Diff Comment Manual Differential; RBC Morphology Normal
[2022-09-18] MEDS: Barium Sulfate 2% W/V-Berry Smoothie 450 ML BTL 900 ML PO (10:49)
[2022-09-18] MEDS: Normal Saline Flush 10 ML SYR IVP (10:50)
[2022-09-18] MEDS: Normal Saline - Diluent 50 ML VIAL IJ (10:50)
[2022-09-18] MEDS: Omnipaque 350 MG/ML 100 ML BTL IJ (10:50)
== END 2022-09-18 01:53 ==
LOC: DI 01:34
PROVIDERS: PCP Nurse Practitioner; Visit Provider Internal Medicine Hematology & Oncology
DX: D69.3 Immune thrombocytopenic purpura (principal); Z90.81 Acquired absence of spleen; R91.8 Other nonspecific abnormal finding of lung field; N20.0 Calculus of kidney; N28.1 Cyst of kidney, acquired
CPT/HCPCS: 74177; 80053; 71260; 85025; J3490

== ENCOUNTER 2022-10-15 14:00 | Outpatient (RCR) | payer OTHER, SELFPAY ==
[2022-09-19 00:15] VITALS: BP 136/87; PULSE 95; RESP 16; TEMP 36.6
[2022-09-26 07:51] LABS: Abs Immature Grans 0.02 10^3/uL (0.0-0.06); Absolute Basophil Count 0.09 10^3/uL (0.0-0.2); Absolute Eosinophil Count 0.19 10^3/uL (0.0-0.7); Absolute Lymphocyte Count 2.75 10^3/uL (1.2-3.4); Absolute Monocyte Count 1.19 10^3/uL (0.1-0.8); Absolute Neutrophil Count 4.73 10^3/uL (1.2-6.7); Eosinophils % 2.1; HCT 49.5 % (40.0-50.0); HGB 16.6 g/dL (13.5-17.5); Immature Grans % 0.2; Lymphocytes % 30.7; MCH 28.3 pg (27.0-33.0); MCHC 33.5 % (32.0-36.0); MCV 84 fL (80-95); Monocytes % 13.3; Neutrophils % 52.7; RBC 5.87 10^6/uL (4.36-5.78); RDW 14.3 % (11.8-14.1); RDW-SD 43.7 fL; WBC 8.97 10^3/uL (4.4-10.8)
[2022-09-26 08:04] LABS: Platelet Count 32 10^3/uL (130-400)
[2022-09-26 08:05] LABS: Diff Comment Diff Reviewed; Poikilocytes 1+
[2022-09-28 08:00] LABS: Abs Immature Grans 0.02 10^3/uL (0.0-0.06); Absolute Basophil Count 0.08 10^3/uL (0.0-0.2); Absolute Eosinophil Count 0.13 10^3/uL (0.0-0.7); Absolute Lymphocyte Count 2.65 10^3/uL (1.2-3.4); Absolute Monocyte Count 1.29 10^3/uL (0.1-0.8); Absolute Neutrophil Count 4.87 10^3/uL (1.2-6.7); Basophils % 0.9; Eosinophils % 1.4; HGB 16.8 g/dL (13.5-17.5); Immature Grans % 0.2; Lymphocytes % 29.3; MCH 28.3 pg (27.0-33.0); MCHC 33.6 % (32.0-36.0); MCV 84 fL (80-95); Monocytes % 14.3; Neutrophils % 53.9; RBC 5.93 10^6/uL (4.36-5.78); RDW 14.2 % (11.8-14.1); RDW-SD 43.7 fL; WBC 9.04 10^3/uL (4.4-10.8)
[2022-09-28 12:04] LABS: Platelet Count 27 10^3/uL (130-400)
[2022-09-29] VITALS (9 sets, daily range): BP systolic 113–130; BP diastolic 71–85; PULSE 71–91; RESP 18–20; TEMP 35.7–36.8; O2SAT 95–98
[2022-09-29] MEDS: diphenhydrAMINE 25 MG CAP 50 MG PO (11:29)
[2022-09-29] MEDS: Acetaminophen 325 MG TAB 650 MG PO (11:30)
[2022-09-29] MEDS: Normal Saline Flush 10 ML SYR IVP (11:30)
[2022-09-29] MEDS: IMMUNE GLOBULIN 5 GM/50 ML BTL 1.05 GM IVPB (11:45)
[2022-09-29] MEDS: IMMUNE GLOBULIN 20 GM/200 ML BTL IVPB (12:31)
[2022-09-29] MEDS: IMMUNE GLOBULIN 40 GM/400 ML BTL IVPB ×2 (13:16→14:50)
[2022-09-30] VITALS (8 sets, daily range): BP systolic 122–144; BP diastolic 75–86; PULSE 72–88; RESP 16–18; TEMP 36.4–36.7; O2SAT 95–100
[2022-09-30] MEDS: Acetaminophen 325 MG TAB 650 MG PO (11:07)
[2022-09-30] MEDS: diphenhydrAMINE 25 MG CAP 50 MG PO (11:08)
[2022-09-30] MEDS: Normal Saline Flush 10 ML SYR IVP (11:09)
[2022-09-30] MEDS: IMMUNE GLOBULIN 5 GM/50 ML BTL IVPB (11:17)
[2022-09-30] MEDS: IMMUNE GLOBULIN 20 GM/200 ML BTL IVPB (11:57)
[2022-09-30] MEDS: IMMUNE GLOBULIN 40 GM/400 ML BTL IVPB ×2 (12:48→14:17)
[2022-10-03] VITALS (9 sets, daily range): BP systolic 126–143; BP diastolic 76–86; PULSE 78–95; RESP 16–18; TEMP 36.3–36.9; O2SAT 94–98
[2022-10-03] MEDS: Acetaminophen 325 MG TAB 650 MG PO (07:10)
[2022-10-03] MEDS: diphenhydrAMINE 50 MG/ML VIAL 25 MG IV (07:12)
[2022-10-03] MEDS: Dexamethasone 10 MG/ML VIAL IV (07:13)
[2022-10-03] MEDS: Normal Saline Flush 10 ML SYR IVP (07:13)
[2022-10-03 07:25] LABS: Abs Immature Grans 0.02 10^3/uL (0.0-0.06); Absolute Monocyte Count 1.49 10^3/uL (0.1-0.8); Absolute Neutrophil Count 4.89 10^3/uL (1.2-6.7); Basophils % 1.1; Eosinophils % 1.1; HCT 48.1 % (40.0-50.0); HGB 15.9 g/dL (13.5-17.5); Immature Grans % 0.2; Lymphocytes % 26.7; MCHC 33.1 % (32.0-36.0); MCV 85 fL (80-95); MPV 12.8 fL (8.0-11.0); Monocytes % 16.6; Neutrophils % 54.3; Platelet Count 223 10^3/uL (130-400); RBC 5.67 10^6/uL (4.36-5.78); RDW 14.9 % (11.8-14.1); RDW-SD 45.9 fL
[2022-10-10 07:26] LABS: Abs Immature Grans 0.08 10^3/uL (0.0-0.06); HCT 50.2 % (40.0-50.0); HGB 16.7 g/dL (13.5-17.5); MCH 28.4 pg (27.0-33.0); MCHC 33.3 % (32.0-36.0); MCV 85 fL (80-95); MPV 12.5 fL (8.0-11.0); RBC 5.88 10^6/uL (4.36-5.78); RDW-SD 46.6 fL
[2022-10-10 07:37] LABS: Absolute Eosinophil Count 0.26 10^3/uL (0.0-0.7); Absolute Lymphocyte Count 2.92 10^3/uL (1.2-3.4); Absolute Monocyte Count 1.12 10^3/uL (0.1-0.8); Atypical Lymphocytes % 18; Bands % 0; Platelet Count 392 10^3/uL (130-400)
[2022-10-10 07:38] LABS: Diff Comment Manual Differential; RBC Morphology Normal
[2022-10-10] MEDS: diphenhydrAMINE 50 MG/ML VIAL (14:05)
[2022-10-10] MEDS: Acetaminophen 325 MG TAB 650 MG PO (14:06)
[2022-10-10] MEDS: Dexamethasone 10 MG/ML VIAL IVP (14:06)
[2022-10-10 14:20] VITALS: BP 143/82; PULSE 83; RESP 16; TEMP 36.7; O2SAT 96
[2022-10-10] MEDS: Normal Saline Flush 10 ML SYR IVP (14:28)
[2022-10-10 14:45] VITALS: BP 125/81; PULSE 82; RESP 16; TEMP 36.6; O2SAT 94
[2022-10-10 15:00] VITALS: BP 118/75; PULSE 77; RESP 18; TEMP 36.6; O2SAT 94
[2022-10-10 15:21] VITALS: BP 116/73; PULSE 73; RESP 18; TEMP 36.8; O2SAT 95
[2022-10-15] MEDS: diphenhydrAMINE 25 MG CAP 50 MG PO (13:59)
[2022-10-15] MEDS: Dexamethasone 10 MG/ML VIAL IV (14:00)
[2022-10-15] MEDS: Acetaminophen 325 MG TAB 650 MG PO (14:00)
[2022-10-15] MEDS: Normal Saline Flush 10 ML SYR IVP (14:00)
[2022-10-15 14:15] VITALS: BP 136/82; PULSE 95; RESP 16; TEMP 36.7; O2SAT 97
[2022-10-15 14:35] LABS: Absolute Monocyte Count 0.76 10^3/uL (0.1-0.8); HCT 46.8 % (40.0-50.0); HGB 15.4 g/dL (13.5-17.5); MCH 27.7 pg (27.0-33.0); MCHC 32.9 % (32.0-36.0); MCV 84 fL (80-95); Platelet Count 371 10^3/uL (130-400); RBC 5.55 10^6/uL (4.36-5.78); RDW 15.4 % (11.8-14.1); RDW-SD 46.6 fL
[2022-10-15 14:47] LABS: Absolute Neutrophil Count 22.73 10^3/uL (1.2-6.7); Bands % 1
[2022-10-15 14:48] LABS: Absolute Lymphocyte Count 1.77 10^3/uL (1.2-3.4); Atypical Lymphocytes % 4; Diff Comment Manual Differential; RBC Morphology Normal
[2022-10-15 14:49] LABS: WBC 25.26 10^3/uL (4.4-10.8)
[2022-10-15 14:52] VITALS: BP 143/79; PULSE 100; RESP 16; TEMP 36.7; O2SAT 98
[2022-10-15 15:25] VITALS: BP 143/77; PULSE 88; RESP 16; TEMP 36.5; O2SAT 99
[2022-10-15 16:00] VITALS: BP 149/87; PULSE 95; RESP 16; TEMP 36.4; O2SAT 99
== END 2022-10-16 23:59 | disposition home or self-care (01) ==
LOC: INF 14:00
PROVIDERS: PCP Nurse Practitioner; Visit Provider Internal Medicine Hematology & Oncology
DX: D69.3 Immune thrombocytopenic purpura (principal)
CPT/HCPCS: 36415; 96365; 96366; 96374; 96375; 96413; 96415; 85025; J1100; J1200; J1459; Q5119

== ENCOUNTER 2022-11-07 02:29 | Outpatient (RCR) | payer OTHER, SELFPAY ==
[2022-10-17 00:15] VITALS: BP 149/87; PULSE 95; RESP 16; TEMP 36.4
[2022-10-22] MEDS: diphenhydrAMINE 25 MG CAP 50 MG PO (14:10)
[2022-10-22] MEDS: Acetaminophen 325 MG TAB 650 MG PO (14:10)
[2022-10-22] MEDS: Dexamethasone 10 MG/ML VIAL IV (14:12)
[2022-10-22 14:15] VITALS: BP 130/80; PULSE 102; RESP 16; TEMP 36.5; O2SAT 95
[2022-10-22 15:01] VITALS: BP 129/75; PULSE 89; RESP 17; TEMP 36.6; O2SAT 94
[2022-10-22 16:00] VITALS: BP 129/75; PULSE 90; RESP 16; TEMP 36.6; O2SAT 94
[2022-10-24 07:49] LABS: HCT 48.5 % (40.0-50.0); HGB 16.5 g/dL (13.5-17.5); MCV 88 fL (80-95); MPV 12.8 fL (8.0-11.0); Platelet Count 273 10^3/uL (130-400); RDW 17.6 % (11.8-14.1); RDW-SD 50.2 fL
[2022-10-24 08:07] LABS: Absolute Lymphocyte Count 1.27 10^3/uL (1.2-3.4); Absolute Monocyte Count 1.27 10^3/uL (0.1-0.8); Absolute Neutrophil Count 29.23 10^3/uL (1.2-6.7)
[2022-10-24 08:13] LABS: Diff Comment Manual Differential; RBC Morphology Normal; WBC 31.77 10^3/uL (4.4-10.8)
[2022-11-07 08:07] LABS: Abs Immature Grans 0.08 10^3/uL (0.0-0.06); Absolute Basophil Count 0.02 10^3/uL (0.0-0.2); Absolute Eosinophil Count 0.02 10^3/uL (0.0-0.7); Absolute Lymphocyte Count 3.71 10^3/uL (1.2-3.4); Absolute Monocyte Count 2.02 10^3/uL (0.1-0.8); Basophils % 0.2; Eosinophils % 0.2; HCT 47.1 % (40.0-50.0); HGB 16.1 g/dL (13.5-17.5); Immature Grans % 0.7; Lymphocytes % 30.7; MCH 28.6 pg (27.0-33.0); MCHC 34.2 % (32.0-36.0); MCV 84 fL (80-95); MPV 12.5 fL (8.0-11.0); Monocytes % 16.7; Neutrophils % 51.5; Platelet Count 370 10^3/uL (130-400); RBC 5.63 10^6/uL (4.36-5.78); RDW 14.7 % (11.8-14.1); RDW-SD 45.2 fL; WBC 12.09 10^3/uL (4.4-10.8)
[2022-11-07 08:09] LABS: Absolute Neutrophil Count 6.23 10^3/uL (1.2-6.7)
[2022-11-07 08:19] LABS: Diff Comment Diff Reviewed; RBC Morphology Normal
== END 2022-11-16 23:59 | disposition home or self-care (01) ==
LOC: INF 02:29
PROVIDERS: PCP Nurse Practitioner; Visit Provider Internal Medicine Hematology & Oncology
DX: D69.3 Immune thrombocytopenic purpura (principal)
CPT/HCPCS: 36415; 96365; 96366; 96374; 96375; 85025; J1100; Q5119

== ENCOUNTER 2022-12-05 02:29 | Outpatient (RCR) | payer OTHER, SELFPAY ==
[2022-11-17 00:20] VITALS: BP 129/75; PULSE 90; RESP 16; TEMP 36.6
[2022-11-21 07:36] LABS: HCT 50.4 % (40.0-50.0); HGB 16.9 g/dL (13.5-17.5); MCH 28.5 pg (27.0-33.0); MCHC 33.5 % (32.0-36.0); MCV 85 fL (80-95); MPV 11.4 fL (8.0-11.0); Platelet Count 322 10^3/uL (130-400); RBC 5.93 10^6/uL (4.36-5.78); RDW 14.6 % (11.8-14.1); RDW-SD 45.1 fL
[2022-11-21 07:50] LABS: Absolute Basophil Count 0.08 10^3/uL (0.0-0.2); Absolute Monocyte Count 1.09 10^3/uL (0.1-0.8); Absolute Neutrophil Count 5.18 10^3/uL (1.2-6.7); Atypical Lymphocytes % 14
[2022-11-21 07:51] LABS: Diff Comment Manual Differential; RBC Morphology Normal
[2022-11-21 07:52] LABS: WBC 8.35 10^3/uL (4.4-10.8)
[2022-12-05 07:47] LABS: Abs Immature Grans 0.16 10^3/uL (0.0-0.06); Absolute Basophil Count 0.07 10^3/uL (0.0-0.2); Absolute Lymphocyte Count 2.15 10^3/uL (1.2-3.4); Absolute Monocyte Count 1.55 10^3/uL (0.1-0.8); Basophils % 0.6; Eosinophils % 0.9; HCT 49.7 % (40.0-50.0); HGB 16.8 g/dL (13.5-17.5); Immature Grans % 1.4; Lymphocytes % 18.5; MCH 28.6 pg (27.0-33.0); MCHC 33.8 % (32.0-36.0); MCV 85 fL (80-95); MPV 12.3 fL (8.0-11.0); Monocytes % 13.3; Neutrophils % 65.3; Platelet Count 294 10^3/uL (130-400); RBC 5.87 10^6/uL (4.36-5.78); RDW 15.6 % (11.8-14.1); RDW-SD 47.1 fL; WBC 11.62 10^3/uL (4.4-10.8)
[2022-12-05 07:50] LABS: Absolute Neutrophil Count 7.59 10^3/uL (1.2-6.7)
[2022-12-05 07:58] LABS: Diff Comment Diff Reviewed; RBC Morphology Normal
== END 2022-12-16 23:59 | disposition home or self-care (01) ==
LOC: INF 02:29
PROVIDERS: PCP Nurse Practitioner; Visit Provider Internal Medicine Hematology & Oncology
DX: D69.3 Immune thrombocytopenic purpura (principal)
CPT/HCPCS: 36415; 85025

== ENCOUNTER 2023-01-13 04:48 | Emergency (ER) | payer OTHER, SELFPAY ==
--- NOTE | 2023-01-13 04:45 | DI.CT_ITS ---
Exam(s) CT ABDOMEN PELVIS WO EXAM: CT ABDOMEN PELVIS WO CLINICAL HISTORY: llq abd pain and groin pain. TECHNIQUE: Imaging Protocol: Axial computed tomography images with coronal and sagittal reformatted images were created and reviewed CONTRAST MATERIAL: Intravenous: none Oral: None COMPARISON: CT CT CHEST/ABD/PEL W from 09/18/2022 FINDINGS: VISUALIZED LUNG BASES: No nodules nor pleural effusions evident. ABDOMEN: There is no ascites. LIVER: There are no obvious focal hepatic lesions evident of this noninfused study. GALLBLADDER/BILIARY: No obvious gallbladder pathology. CBD is not dilated. PANCREAS: No evidence of pancreatic mass nor dilatation of the pancreatic duct. SPLEEN: Spleen is again noted to be surgically absent. ADRENALS: There are no significant adrenal masses. KIDNEYS:No cysts evident. No solid renal masses. There presently no calculi in the kidneys. However , the previously present calculus in lower pole left kidney has now migrated down the left ureter to the UV J level with hydronephrosis and hydroureter above this level. This 3 millimeter calculus is i ntramural at the level of the left UVJ. Opposite-right ureter is unremarkable. No other findings in the urinary bladder.. ABDOMINAL AORTA: Abdominal aorta is not enlarged. LYMPH NODES: There is no retroperitoneal nor paraaortic adenopathy. ABDOMINAL WALL: No evidence of significant anterior abdominal wall nor inguinal hernia. GI: There is no evidence of bowel obstruction, free air, nor abscess. PELVIS: LYMPH NODES: There is no intrapelvic nor inguinal adenopathy. GI: No evidence of appendicitis.No evidence of sigmoid diverticulitis. URINARY BLADDER: As above. REPRODUCTIVE: Prostate size upper normal. OSSEOUS: No significant osseous lesions. IMPRESSION: 1. There is an obstructing 3 millimeter calculus at the intramural aspect of the left ureterovesical junction. No remaining calculi in the kidneys. This obstructing calculus was previously present in the lower pole calyx of the left kidney on the recent CT scan of 09/18/2022. RADIATION DOSE DELIVERED: 1,061.9mGy.cm Total DLP DATA REPOSITORY: All CT scans at this facility are submitted to the National Radiology Data Registry (NRDR) Dose Index Registry (DIR) with the [employer] (ACR). RADIATION OPTIMIZATION: All CT scans at this facility use at least one of these dose optimization te chniques: automated exposure control; mA and/or kV adjustment per patient size (includes targeted exa ms where dose is matched to clinical indication); or iterative reconstruction.
[2023-01-13 04:52] VITALS: BP 130/88; PULSE 86; RESP 18; TEMP 37.1; O2SAT 98
--- NOTE | 2023-01-13 04:57 | ED.GENADUL_ITS ---
Discharge Plan Disposition Patient Disposition: Home Condition: Good Discharge Details Clinical Impression: Kidney stone on left side Primary Care Provider: Aicha Beckford ED Provider: Juan Manuel Everett Home Meds and New Rx's Prescriptions: New ketorolac 10 mg tablet 10 mg PO TID 5 Days Qty: 15 0RF tamsulosin [Flomax] 0.4 mg capsule 0.4 mg PO DAILY Qty: 7 0RF No Action hydrocortisone 2.5 % lotion 1 applic TP TID PRN (Reason: rash) Qty: 118 0RF Rx Instructions: apply to upper chest and neck as needed for rash lorazepam 1 mg tablet 1 mg PO DAILY PRN (Reason: anxiety) Qty: 30 1RF ibuprofen 200 mg tablet 1,200 mg PO DAILY ropinirole 2 mg tablet 2 mg PO QHS Qty: 90 3RF Rx Instructions: administer 1-3 hours before bedtime bupropion HCl [Wellbutrin XL] 150 mg tablet extended release 24 hr 150 mg PO QAM Qty: 90 3RF triamcinolone acetonide 0.1 % cream 1 applic TP TID PRN (Reason: lower abdomen rash) Qty: 30 1RF lisinopril 20 mg tablet 20 mg PO DAILY Qty: 90 3RF dexamethasone 4 mg tablet 40 mg PO DAILY Rx Instructions: as directed omeprazole 20 mg capsule,delayed release(DR/EC) 20 mg PO DAILY Rx Instructions: but increase to BID when taking dexamethasone Discharge Instructions Instructions: Kidney Stones (ED) Additional Instructions: At this time you have evidence of a small kidney stone. This is likely the cause of your symptoms. This should pass within the next 12 to 48 hours, if not earlier. Please drink plenty of fluids, 10 to 12 cups/day at least. Please take the toradol as directed and 1000 mg of Tylenol every 6 hours as needed for pain. These are the maximum doses of these medicines. Please take the Flomax as directed. This will help in expediting the passage of your kidney stone. If your pain stops, you can stop taking the Flomax. Please strain your urine to collect the stone. This can then be analyzed by your family doctor. If you do not have resolution of your symptoms after 48 to 72 hours please follow-up closely with your family doctor or return here for reassessment. If you notice any worsening of your symptoms, or any new symptoms such as inability to urinate, vomiting, diarrhea, fever, chills, shortness of breath, chest pain, numbness, weakness, or fainting , please return immediately to the emergency department for reevaluation. Please follow up with your primary care provider as soon as possible for reassessment and reevaluation. As always, it was a pleasure participating in your medical care today. Referrals: Mervin Mo MD [ [facility] STAFF PHYSICIAN] - Aicha Beckford NP [Primary Care Provider] - Medical Decision Making 42-year-old male with a past medical history of ITP, previous splenectomy, hypertension, who presents today for evaluation of left lower quadrant/left groin pain. Patient states that he woke up out of sleep this evening about an hour or so ago with the pain. It is constant, it comes and goes in severity though. It is described as a painful sensation in the left groin that makes him feel like he has to have a bowel movement. He did have an episode of vomiting, his bowel movements did not improve his pain. He denies any blood in his bowel movements. He denies ever having pain like this before. No known history of kidney stones. No history of diverticulitis or significant recent small seed consumption. No other complaints at this time. No fever or chills. Exam demonstrates left lower quadrant left groin tenderness. No palpable hernia. No testicular tenderness. Normal cremasteric reflex. Differential includes diverticulitis versus kidney stone. Symptoms inconsistent with testicular torsion. We will get a CT scan, treat the patient's pain, rehydrate, monitor closely and reassess. 6:20 AM On reassessment patient is feeling much better and has complete resolution of his pain. Mild white count. No bandemia. No fever. Lactate normal. Renal function normal. Urinalysis shows no evidence of infection whatsoever. CT scan showed evidence of obstructing left ureterovesicular junction calculus that is 3 to 4 mm. With the patient's resolution of his symptoms I suspect that the stone has now passed into the bladder. He feels well and would like to go home. I feel this is very reasonable. We will give strainer for home use, send a prescription of Toradol and Flomax to the [facility] pharmacy to be picked up and used as needed. Otherwise patient looks clinically well. Recommend follow-up with Dr. Mo and PCP. Discussed red flags for which to return. I have extensively reviewed the treatment plan and discharge instructions with the patient and their family. I have addressed all patient concerns at this time. The patient and family was made aware of what symptoms to monitor for that would warrant a return to the emergency department. Discussed the plan with the patient and family, they demonstrate verbal understanding and agreement with our assessment and plan at this time. The documentation in this chart was dictated using [employer] dictation software. Please excuse any dictation errors. FINDINGS: Limitations: No contrast was administered, limiting evaluation for some pathologies. Liver: No focal hepatic lesion identified, within the limitations of a noncontrast examination. Gallbladder and bile ducts: No radiodense gallbladder calculi seen. Pancreas: No CT evidence for acute pancreatitis. Spleen: Spleen absent. Adrenal glands: No mass. Kidneys and ureters: Left hydroureteronephrosis. 3-4 mm calculus at the left ureterovesical junction. Stomach and bowel: No intestinal obstruction appreciated. Appendix: No evidence of appendicitis. Intraperitoneal space: No free air. Vasculature: No abdominal aortic aneurysm. Lymph nodes: Nonspecific mesenteric and retroperitoneal lymph nodes. Urinary bladder: No acute findings. Reproductive: Enlarged prostate calcifications. Bones/joints: No pertinent acute abnormality seen. Soft tissues: No pertinent acute abnormality seen. IMPRESSION: Obstructing left ureterovesical junction calculus. Thank you for allowing us to participate in the care of your patient. Dictated and Authenticated by: Zora Torres MD 01/13/2023 6:12 AM Eastern Time ([place] & [place]) HPI General Date/Time Provider Initiated Documentation: 01/13/23 04:49 . HPI Narrative: 42-year-old male with a past medical history of ITP, previous splenectomy, hypertension, who presents today for evaluation of left lower quadrant/left groin pain. Patient states that he woke up out of sleep this evening about an hour or so ago with the pain. It is constant, it comes and goes in severity though. It is described as a painful sensation in the left groin that makes him feel like he has to have a bowel movement. He did have an episode of vomiting, his bowel movements did not improve his pain. He denies any blood in his bowel movements. He denies ever having pain like this before. No known history of kidney stones. No history of diverticulitis or significant recent small seed consumption. No other complaints at this time. No fever or chills. Related Data Home Medications Medication Instructions Recorded Confirmed ibuprofen 200 mg tablet 1,200 mg PO DAILY 09/02/18 10/01/22 hydrocortisone 2.5 % lotion 1 applic topical TID PRN rash #118 09/15/19 10/01/22 mL lorazepam 1 mg tablet 1 mg PO DAILY PRN anxiety #30 11/04/19 10/01/22 tab-caps ropinirole 2 mg tablet 2 mg PO QHS #90 tabs 04/11/22 10/01/22 bupropion HCl 150 mg 24 hr tablet, 150 mg PO QAM #90 tabs 07/16/22 10/01/22 extended release (Wellbutrin XL) triamcinolone acetonide 0.1 % 1 applic topical TID PRN lower 08/14/22 10/01/22 topical cream abdomen rash #30 grams lisinopril 20 mg tablet 20 mg PO DAILY #90 tab-caps 10/01/22 10/01/22 dexamethasone 4 mg tablet 40 mg PO DAILY 10/24/22 omeprazole 20 mg capsule,delayed 20 mg PO DAILY 10/24/22 release ketorolac 10 mg tablet 10 mg PO TID 5 days #15 tabs 01/13/23 tamsulosin 0.4 mg capsule (Flomax) 0.4 mg PO DAILY #7 caps 01/13/23 Previous Rx's Medication Instructions Recorded hydrocortisone 2.5 % lotion 1 applic topical TID PRN rash #118 09/15/19 mL lorazepam 1 mg tablet 1 mg PO DAILY PRN anxiety #30 11/04/19 tab-caps ropinirole 2 mg tablet 2 mg PO QHS #90 tabs 04/11/22 bupropion HCl 150 mg 24 hr tablet, 150 mg PO QAM #90 tabs 07/16/22 extended release (Wellbutrin XL) triamcinolone acetonide 0.1 % 1 applic topical TID PRN lower 08/14/22 topical cream abdomen rash #30 grams lisinopril 20 mg tablet 20 mg PO DAILY #90 tab-caps 10/01/22 ketorolac 10 mg tablet 10 mg PO TID 5 days #15 tabs 01/13/23 tamsulosin 0.4 mg capsule (Flomax) 0.4 mg PO DAILY #7 caps 01/13/23 Allergies Allergy/AdvReac Type Severity Reaction Status Date / Time No Known Allergies Allergy Verified 10/01/22 15:40 General Stated Complaint: Abd Prob [place]RI[place]: 3 Review of Systems All systems reviewed & are unremarkable except as noted in HPI and below PFSH All Active Problems (Updated 01/13/23 @ 05:44 by Juan Manuel Everett DO) Kidney stone on left side (Acute) Pulmonary nodules (Acute) 11/28/22 [facility] Impacted cerumen, left ear (Acute) Acute idiopathic thrombocytopenic purpura (Acute) 01/24/22 [facility] and return in 6 months 08/22/21 F/U [facility] Annual physical exam (Acute) Snoring (Acute) Stenosing tenosynovitis of finger of left hand (Acute) Employee exposure to body fluids (Acute) Employee exposure to body fluids (Acute) Periodic limb movement disorder (Chronic 09/20/20) Heavy breathing (Acute) Snoring (Acute) Daytime somnolence (Acute) Encounter for screening for other viral diseases (Acute) Sebaceous cyst (Acute) Rash (Acute) Insomnia (Acute) Cellulitis (Acute) 11/04/18 ENT ov Tender lymph node (Acute) Ear pain, right (Acute) 04/29/19 [facility] [place]- feels abnl auditory perception is due to hair or minimal transient Eustacian Tube Dysfunction Neuralgia, post-herpetic (Acute) S/P splenectomy (Chronic) Neoplasm of skin (Acute 05/24/14) Mood disorder (Acute 11/07/17) Hypertension (Chronic 03/20/13) Lisinopril started 12/2008 Nicole hopson 05/2013; TLCs; Goal BP </=140/90; EXACERBATED by high dose Prednisone for ITP 01/2016 Eczema (Acute 05/28/13) Chronic midline low back pain with sciatica (Acute 11/07/17) Arthralgia of right acromioclavicular joint (Acute 11/13/17) Anxiety (Chronic 12/15/15) Submandibular abscess (Acute) Peritonsillar abscess (Acute) Abscess of submandibular gland (Acute) Dental infection (Acute) Hip bursitis (Acute) ITP (idiopathic thrombocytopenic purpura) (Chronic ~11/2015) relapse 04/2017, 06/2018 Surgical History biosy of chin (05/24/14) seborrheic keratosis H/O splenectomy [facility] [place] 08/08/18 done Laporscopically Vasectomy (01/05/11) Dr. 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 [employer] Pets and animals: Yes Sexually active: Yes Do you think of yourself as: straight/heterosexual Current gender identity: male What is your relationship status?: How often do you talk on the phone with friends or family?: twice per week How often do you get together with friends or relatives?: once per week Do you belong to any clubs or organized social groups?: no Panel score (0-1 are the most socially isolated patients): 2 Annalise/Amish: Sikh Special annalise needs: No Seatbelt use: sometimes Helmet use: Yes Drive intox or ride w/intox school boat driver: No Do you feel safe at home: Yes Do you feel safe in your relationship?: Yes Exam Narrative Exam Narrative: 1.Const: Well-nourished, Well-developed, appearing stated age 2.Eyes: PERRL, no conjunctival injection, and symmetrical lids. 3.ENT: Atraumatic external nose and ears. Moist MM. Neck: Symmetric, trachea midline, No thyromegaly. 4.CVS: +S1/S2, No murmurs or gallops. Peripheral pulses 2+ and equal in all extremities. Brisk capillary refill in all extremities. 5.RESP: Unlabored respiratory effort. Clear to auscultation bilaterally. No wheezes rales or rhonchi 6.GI: Soft, nondistended, no guarding or rebound. Tenderness is present in the left groin and left lower quadrant of the abdomen. No testicular tenderness. Normal cremasteric reflex bilaterally. No flank or CVA tenderness. No upper quadrant tenderness. No right-sided tenderness. 7.MSK: Normocephalic/Atraumatic, Extremities w/o deformity or ttp No cyanosis or clubbing, Normal movement of all extremities 8.Skin: Warm, Dry. No rashes or lesions. 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 Sensation grossly intact, no focal neurologic deficits. 10.Psych: (AAO) x3. Appropriate mood and affect Course Vital Signs Vital signs: Vital Signs Temperature 37.1 C 01/13/23 04:52 Pulse 86 01/13/23 04:52 Respiratory Rate 18 01/13/23 04:52 Blood Pressure 130/88 01/13/23 04:52 Pulse Oximetry 98 01/13/23 04:52 Temperature 37.1 C 01/13/23 04:52 Temperature Source Tympanic 01/13/23 04:52 Pulse 86 01/13/23 04:52 Respiratory Rate 18 01/13/23 04:52 Respiratory Effort Normal 01/13/23 04:55 Blood Pressure 130/88 01/13/23 04:52 Pulse Oximetry 98 01/13/23 04:52 Oxygen Delivery Method Room Air 01/13/23 04:52 Oxygen Flow Rate 0 01/13/23 04:52 Pain Level 8 01/13/23 04:52 PAWSS Have you Been Recently Intoxicated or Drunk Within the Last 30 days?: No Have you Ever Experienced Previous Episodes of Alcohol Withdrawal?: No Have you ever Experienced Withdrawal Seizures?: No Have you ever Experienced Delirium Tremens(DT)s?: No Have you ever undergone Alcohol Rehabilitation Treatment (i.e, inpt ot outpatient treatment programs)?: No Have you ever Experienced Blackouts?: No Have you ever Combined Alcohol with other Downers within the last 90 days?: No Have you ever Combined Alcohol with any other Substance of Abuse during the last 90 days?: No Positive Blood Alcohol level on Presentation? [PCS.BAL]: No Evidence of Increased Autonomic Activity (i.e. HR>120, tremor, sweating, agitation, nausea)?: No Result: 0
[2023-01-13 05:07] LABS: Lactate 1.2 mmol/L (0.6-1.4)
[2023-01-13] MEDS: Normal Saline 1,000 ML 1000 ML IV (05:08)
[2023-01-13] MEDS: Ketorolac 15 MG/ML VIAL IVP (05:08)
[2023-01-13] MEDS: MORPHine 4 MG/ML SYR IVP (05:08)
[2023-01-13] MEDS: Ondansetron 4 MG/2 ML VIAL IVP (05:09)
[2023-01-13 05:11] LABS: Abs Immature Grans 0.07 10^3/uL (0.0-0.06); HCT 47.7 % (40.0-50.0); MCH 28.5 pg (27.0-33.0); MCHC 33.5 % (32.0-36.0); MCV 85 fL (80-95); MPV 12.1 fL (8.0-11.0); Platelet Count 307 10^3/uL (130-400); RBC 5.62 10^6/uL (4.36-5.78); RDW 14.6 % (11.8-14.1); RDW-SD 44.7 fL; WBC 16.94 10^3/uL (4.4-10.8)
[2023-01-13 05:23] LABS: Absolute Lymphocyte Count 0.51 10^3/uL (1.2-3.4); Absolute Monocyte Count 1.02 10^3/uL (0.1-0.8); Absolute Neutrophil Count 15.42 10^3/uL (1.2-6.7); Diff Comment Manual Differential; RBC Morphology Normal
[2023-01-13 05:28] LABS: ALT 39 U/L (16-63); AST 26 U/L (15-37); Albumin 4.2 g/dL (3.4-5.0); Alkaline Phosphatase 74 U/L (46-116); Anion Gap 8.7 mmol/L (3-11); BUN 19 mg/dL (7-18); Bilirubin, Total 0.6 mg/dL (0.2-1.0); CO2 30.3 mmol/L (21.0-32.0); CREATININE 1.1 mg/dL (0.70-1.30); Calcium 9.4 mg/dL (8.5-10.1); Chloride 104 mmol/L (98-107); Estimated GFR 86.49 (mL/min/1.73m2); Glucose 137 mg/dL (74-106); Lipase 46 U/L (16-77); Potassium 4.2 mmol/L (3.5-5.1); Sodium 143 mmol/L (136-145); Total Protein 7.4 g/dL (6.4-8.2)
[2023-01-13] MEDS: Tamsulosin 0.4 MG CAPCR PO (05:43)
[2023-01-13 05:55] LABS: Bilirubin Negative (Negative); Blood Large (Negative); Clarity Clear (Clear); Glucose Negative (Negative); Ketones Negative (Negative); Leukocyte Esterase Negative (Negative); Nitrite Negative (Negative); Urobilinogen 0.2 mg/dL (Up to 0.2); pH 6.5 (5-8)
[2023-01-13 05:58] LABS: Bacteria Rare HPF (Negative); C & S Indicated? No; Casts Negative LPF (Negative); Crystals Negative HPF (Negative); Epithelial Cells Negative HPF (Negative); Mucus Negative (Negative); WBC Negative HPF (0-5)
--- NOTE | 2023-01-13 06:12 | DI.VRAD_ITS ---
PROCEDURE INFORMATION: Exam: CT Abdomen And Pelvis Without Contrast Exam date and time: 01/13/2023 5:21 AM Age: 42 years old Clinical indication: Other: Llq pain and groin pain TECHNIQUE: Imaging protocol: Computed tomography of the abdomen and pelvis without contrast. Radiation optimization: All CT scans at this facility use at least one of these dose optimization techniques: automated exposure control; mA and/or kV adjustment per patient size (includes targeted exams where dose is matched to clinical indication); or iterative reconstruction. COMPARISON: CT CHEST/ABD/PEL W 09/18/2022 11:06 AM FINDINGS: Limitations: No contrast was administered, limiting evaluation for some pathologies. Liver: No focal hepatic lesion identified, within the limitations of a noncontrast examination. Gallbladder and bile ducts: No radiodense gallbladder calculi seen. Pancreas: No CT evidence for acute pancreatitis. Spleen: Spleen absent. Adrenal glands: No mass. Kidneys and ureters: Left hydroureteronephrosis. 3-4 mm calculus at the left ureterovesical junction. Stomach and bowel: No intestinal obstruction appreciated. Appendix: No evidence of appendicitis. Intraperitoneal space: No free air. Vasculature: No abdominal aortic aneurysm. Lymph nodes: Nonspecific mesenteric and retroperitoneal lymph nodes. Urinary bladder: No acute findings. Reproductive: Enlarged prostate calcifications. Bones/joints: No pertinent acute abnormality seen. Soft tissues: No pertinent acute abnormality seen. IMPRESSION: Obstructing left ureterovesical junction calculus. Dictated and Authenticated by: Zora Torres MD. Ordering:MIKE Zambrano MD
[2023-01-13 06:25] VITALS: BP 119/77
== END 2023-01-13 06:26 | disposition home or self-care (01) ==
PROVIDERS: Emergency Provider Student in an Organized Health Care Education/Training Program; PCP Nurse Practitioner
DX: N20.0 Calculus of kidney (principal)
CPT/HCPCS: 80053; 83690; 96361; 96374; 96375; 99284; 74176; 81003; 81015; 83605; 85025; J1885; J2270; J2405

== ENCOUNTER 2023-01-16 07:00 | Outpatient (RCR) | payer OTHER, SELFPAY ==
[2022-12-17 00:08] VITALS: BP 129/75; PULSE 90; RESP 16; TEMP 36.6
[2022-12-19 08:10] LABS: Abs Immature Grans 0.03 10^3/uL (0.0-0.06); Absolute Basophil Count 0.07 10^3/uL (0.0-0.2); Absolute Eosinophil Count 0.22 10^3/uL (0.0-0.7); Absolute Lymphocyte Count 1.91 10^3/uL (1.2-3.4); Absolute Monocyte Count 1.25 10^3/uL (0.1-0.8); Absolute Neutrophil Count 4.37 10^3/uL (1.2-6.7); Basophils % 0.9; Eosinophils % 2.8; HCT 50.3 % (40.0-50.0); HGB 16.7 g/dL (13.5-17.5); Immature Grans % 0.4; Lymphocytes % 24.3; MCH 28.1 pg (27.0-33.0); MCHC 33.2 % (32.0-36.0); MCV 85 fL (80-95); MPV 12.4 fL (8.0-11.0); Monocytes % 15.9; Neutrophils % 55.7; Platelet Count 350 10^3/uL (130-400); RBC 5.94 10^6/uL (4.36-5.78); RDW 15.4 % (11.8-14.1); RDW-SD 46.4 fL; WBC 7.85 10^3/uL (4.4-10.8)
[2023-01-16 07:35] LABS: Abs Immature Grans 0.02 10^3/uL (0.0-0.06); Absolute Basophil Count 0.08 10^3/uL (0.0-0.2); Absolute Eosinophil Count 0.13 10^3/uL (0.0-0.7); Absolute Lymphocyte Count 1.87 10^3/uL (1.2-3.4); Absolute Monocyte Count 1.16 10^3/uL (0.1-0.8); Absolute Neutrophil Count 3.69 10^3/uL (1.2-6.7); Basophils % 1.2; Eosinophils % 1.9; HCT 48.4 % (40.0-50.0); HGB 16.2 g/dL (13.5-17.5); Immature Grans % 0.3; Lymphocytes % 26.9; MCH 28.8 pg (27.0-33.0); MCHC 33.5 % (32.0-36.0); MCV 86 fL (80-95); MPV 12.8 fL (8.0-11.0); Monocytes % 16.7; Platelet Count 314 10^3/uL (130-400); RBC 5.63 10^6/uL (4.36-5.78); RDW 14.9 % (11.8-14.1); WBC 6.95 10^3/uL (4.4-10.8)
[2023-01-16 08:13] VITALS: BP 129/75; PULSE 90; RESP 16; TEMP 36.6
== END 2023-01-16 23:59 | disposition home or self-care (01) ==
LOC: INF 07:00
PROVIDERS: PCP Nurse Practitioner; Visit Provider Internal Medicine Hematology & Oncology
DX: D69.3 Immune thrombocytopenic purpura (principal)
CPT/HCPCS: 36415; 85025

== ENCOUNTER 2023-01-18 13:18 | Outpatient (REF) | payer OTHER, SELFPAY ==
[2023-01-24 12:05] LABS: Source: Passed Stone
== END 2023-01-18 13:19 | disposition home or self-care (01) ==
LOC: LBN 13:18
PROVIDERS: PCP Nurse Practitioner; Visit Provider Urology
DX: N20.0 Calculus of kidney (principal)
CPT/HCPCS: 82365

== ENCOUNTER 2023-02-13 02:25 | Outpatient (RCR) | payer OTHER, SELFPAY ==
[2023-01-17 00:15] VITALS: BP 129/75; PULSE 90; RESP 16; TEMP 36.6
[2023-02-13 08:08] LABS: Abs Immature Grans 0.03 10^3/uL (0.0-0.06); Absolute Basophil Count 0.08 10^3/uL (0.0-0.2); Absolute Eosinophil Count 0.18 10^3/uL (0.0-0.7); Absolute Monocyte Count 1.25 10^3/uL (0.1-0.8); Absolute Neutrophil Count 4.56 10^3/uL (1.2-6.7); Eosinophils % 2.2; HCT 50.8 % (40.0-50.0); HGB 16.9 g/dL (13.5-17.5); Immature Grans % 0.4; Lymphocytes % 25.6; MCH 28.3 pg (27.0-33.0); MCHC 33.3 % (32.0-36.0); MCV 85 fL (80-95); MPV 12.5 fL (8.0-11.0); Monocytes % 15.2; Neutrophils % 55.6; Platelet Count 358 10^3/uL (130-400); RBC 5.98 10^6/uL (4.36-5.78); RDW 14.3 % (11.8-14.1); RDW-SD 43.9 fL
== END 2023-02-15 23:59 | disposition home or self-care (01) ==
LOC: INF 02:25
PROVIDERS: PCP Nurse Practitioner; Visit Provider Internal Medicine Hematology & Oncology
DX: D69.3 Immune thrombocytopenic purpura (principal)
CPT/HCPCS: 36415; 85025

== ENCOUNTER 2023-04-03 02:34 | Outpatient (RCR) | payer OTHER, SELFPAY ==
[2023-02-16 00:17] VITALS: BP 129/75; PULSE 90; RESP 16; TEMP 36.6
[2023-04-03 08:09] LABS: HCT 51.7 % (40.0-50.0); HGB 17.3 g/dL (13.5-17.5); MCHC 33.5 % (32.0-36.0); MCV 84 fL (80-95); MPV 12.2 fL (8.0-11.0); Platelet Count 365 10^3/uL (130-400); RBC 6.18 10^6/uL (4.36-5.78); RDW 14.5 % (11.8-14.1); RDW-SD 43.9 fL; WBC 9.44 10^3/uL (4.4-10.8)
[2023-04-03 08:26] LABS: Absolute Eosinophil Count 0.19 10^3/uL (0.0-0.7); Absolute Lymphocyte Count 2.27 10^3/uL (1.2-3.4); Absolute Monocyte Count 1.51 10^3/uL (0.1-0.8); Absolute Neutrophil Count 5.48 10^3/uL (1.2-6.7); Atypical Lymphocytes % 9; Diff Comment Manual Differential; RBC Morphology Normal
== END 2023-04-18 23:59 | disposition home or self-care (01) ==
LOC: INF 02:34
PROVIDERS: PCP Nurse Practitioner; Visit Provider Internal Medicine Hematology & Oncology
DX: D69.3 Immune thrombocytopenic purpura (principal)
CPT/HCPCS: 36415; 85025

== ENCOUNTER 2023-05-29 01:31 | Outpatient (RCR) | payer OTHER, SELFPAY ==
[2023-04-19 00:13] VITALS: BP 129/75; PULSE 90; RESP 16; TEMP 36.6
[2023-05-29 07:56] LABS: HCT 47.4 % (40.0-50.0); HGB 16.2 g/dL (13.5-17.5); MCH 28.4 pg (27.0-33.0); MCHC 34.2 % (32.0-36.0); MCV 83 fL (80-95); MPV 12.1 fL (8.0-11.0); Platelet Count 350 10^3/uL (130-400); RDW-SD 45.4 fL; WBC 10.19 10^3/uL (4.4-10.8)
[2023-05-29 08:22] LABS: Absolute Lymphocyte Count 2.45 10^3/uL (1.2-3.4); Absolute Monocyte Count 1.02 10^3/uL (0.1-0.8); Absolute Neutrophil Count 6.42 10^3/uL (1.2-6.7); Atypical Lymphocytes % 11; Diff Comment Manual Differential; RBC Morphology Normal
== END 2023-06-18 23:59 | disposition home or self-care (01) ==
LOC: INF 01:31
PROVIDERS: PCP Nurse Practitioner; Visit Provider Internal Medicine Hematology & Oncology
DX: D69.3 Immune thrombocytopenic purpura (principal)
CPT/HCPCS: 36415; 85025

== ENCOUNTER 2023-08-02 01:06 | Outpatient (RCR) | payer OTHER, SELFPAY ==
[2023-08-02 09:33] LABS: Abs Immature Grans 0.03 10^3/uL (0.0-0.06); Absolute Basophil Count 0.07 10^3/uL (0.0-0.2); Absolute Eosinophil Count 0.15 10^3/uL (0.0-0.7); Absolute Lymphocyte Count 2.15 10^3/uL (1.2-3.4); Absolute Monocyte Count 0.96 10^3/uL (0.1-0.8); Absolute Neutrophil Count 5.84 10^3/uL (1.2-6.7); Basophils % 0.8; Eosinophils % 1.6; HGB 18.1 g/dL (13.5-17.5); Immature Grans % 0.3; Lymphocytes % 23.4; MCHC 34.2 % (32.0-36.0); MCV 85 fL (80-95); Monocytes % 10.4; Neutrophils % 63.5; Platelet Count 355 10^3/uL (130-400); RBC 6.25 10^6/uL (4.36-5.78); RDW 15.2 % (11.8-14.1); RDW-SD 46.7 fL
== END 2023-08-18 23:59 | disposition home or self-care (01) ==
LOC: INF 01:06
PROVIDERS: PCP Nurse Practitioner; Visit Provider Internal Medicine Hematology & Oncology
DX: D69.3 Immune thrombocytopenic purpura (principal)
CPT/HCPCS: 36415; 85025

== ENCOUNTER 2023-12-04 04:13 | Outpatient (RCR) | payer BC, SELFPAY ==
[2023-06-19 00:14] VITALS: BP 129/75; PULSE 90; RESP 16; TEMP 36.6
[2023-12-04 14:23] LABS: HCT 47.9 % (40.0-50.0); HGB 16.3 g/dL (13.5-17.5); MCH 28.7 pg (27.0-33.0); MCV 85 fL (80-95); MPV 11.9 fL (8.0-11.0); Platelet Count 334 10^3/uL (130-400); RBC 5.67 10^6/uL (4.36-5.78); RDW 14.4 % (11.8-14.1); RDW-SD 44.1 fL
[2023-12-04 15:08] LABS: Absolute Neutrophil Count 7.62 10^3/uL (1.2-6.7); Atypical Lymphocytes % 4; WBC 11.72 10^3/uL (4.4-10.8)
[2023-12-04 15:09] LABS: Absolute Eosinophil Count 0.47 10^3/uL (0.0-0.7); Absolute Lymphocyte Count 2.23 10^3/uL (1.2-3.4); Absolute Monocyte Count 1.41 10^3/uL (0.1-0.8)
[2023-12-04 15:10] LABS: Diff Comment Manual Differential; RBC Morphology Normal
[2023-12-17 08:44] LABS: Final Diagnosis See Comments
== END 2023-12-17 23:59 | disposition home or self-care (01) ==
LOC: INF 04:13
PROVIDERS: PCP Nurse Practitioner; Visit Provider Internal Medicine Hematology & Oncology
DX: D75.1 Secondary polycythemia (principal)
CPT/HCPCS: 36415; 81219; 81270; 81339; 85025

== ENCOUNTER 2024-05-07 19:09 | Outpatient (CLI) | payer BC, SELFPAY ==
--- NOTE | 2024-05-07 19:00 | DI.RAD_ITS ---
Exam(s) XR CHEST 2V PA LATERAL EXAM: XR CHEST 2V PA LATERAL CLINICAL HISTORY: R79.81 abnormal blood-gas level, oxygen saturation below reference range TECHNIQUE: 2D digital imaging was performed. Two views. COMPARISON: No exams were available for comparison FINDINGS: HEART: Normal size. Aorta: Not dilated. PULMONARY VASCULATURE: Normal. MEDIASTINUM: Unremarkable. LUNGS: Clear. PLEURAL SPACE: No pleural effusion or pneumothorax. BONE:Unremarkable for age. SOFT TISSUES: Unremarkable. IMPRESSION: No acute abnormality. DATA REPOSITORY: RADIATION DOSE DELIVERED:
--- NOTE | 2024-05-07 19:57 | DI.VRAD_ITS ---
PROCEDURE INFORMATION: Exam: XR Chest Exam date and time: 05/07/2024 7:17 PM Age: 43 years old Clinical indication: Other: R79.81 abnormal blood-gas level, oxygen saturation below reference range TECHNIQUE: Imaging protocol: Radiologic exam of the chest. Views: 2 views. COMPARISON: CT CHEST/ABD/PEL W 09/18/2022 11:06 AM FINDINGS: Lungs: No consolidation. Pleural spaces: No pleural effusion. No pneumothorax. Heart/Mediastinum: No cardiomegaly. Bones/joints: No acute fracture. IMPRESSION: No acute cardiopulmonary pathology. Dictated and Authenticated by: Mariana Aguilar MD. Ordering:KHANH Mullen MD
== END 2024-05-07 19:29 ==
LOC: DI 19:12
PROVIDERS: PCP Nurse Practitioner; Visit Provider Physician Assistant Medical
DX: R79.81 Abnormal blood-gas level (principal)
CPT/HCPCS: 71046

== ENCOUNTER 2024-05-07 20:50 | Outpatient (REF) | payer BC, SELFPAY ==
[2024-05-07 22:08] LABS: Abs Immature Grans 0.03 10^3/uL (0.0-0.06); Absolute Basophil Count 0.06 10^3/uL (0.0-0.2); Absolute Lymphocyte Count 3.11 10^3/uL (1.2-3.4); Absolute Monocyte Count 1.14 10^3/uL (0.1-0.8); Absolute Neutrophil Count 5.37 10^3/uL (1.2-6.7); Basophils % 0.6 %; HCT 50.6 % (40.0-50.0); Immature Grans % 0.3 %; Lymphocytes % 31.4 %; MCH 28.5 pg (27.0-33.0); MCHC 33.6 % (32.0-36.0); MCV 85 fL (80-95); Monocytes % 11.5 %; Neutrophils % 54.2 %; Platelet Count 315 10^3/uL (130-400); RBC 5.97 10^6/uL (4.36-5.78); RDW 14.8 % (11.8-14.1); RDW-SD 45.2 fL; WBC 9.91 10^3/uL (4.4-10.8)
[2024-05-07 22:48] LABS: D-Dimer 189 ng/mlFEU (<500)
[2024-05-07 23:06] LABS: ALT 62 U/L (16-63); AST 36 U/L (15-37); Albumin 4.3 g/dL (3.4-5.0); Alkaline Phosphatase 84 U/L (46-116); Anion Gap 11.4 mmol/L (3-11); BUN 19 mg/dL (7-18); Bilirubin, Total 0.59 mg/dL (0.2-1.0); CO2 22.6 mmol/L (21.0-32.0); CREATININE 0.9 mg/dL (0.70-1.30); Calcium 10.9 mg/dL (8.5-10.1); Chloride 107 mmol/L (98-107); Estimated GFR 109.36 (mL/min/1.73m2); Glucose 96 mg/dL (74-106); Potassium 4.7 mmol/L (3.5-5.1); Sodium 141 mmol/L (136-145); Total Protein 7.5 g/dL (6.4-8.2)
== END 2024-05-07 20:51 | disposition home or self-care (01) ==
LOC: LBN 20:50
PROVIDERS: PCP Nurse Practitioner; Visit Provider Physician Assistant Medical
DX: R79.81 Abnormal blood-gas level (principal)
CPT/HCPCS: 80053; 85025; 85379

== ENCOUNTER 2024-06-03 05:01 | Outpatient (CLI) | payer BC, SELFPAY ==
[2024-06-03 14:44] LABS: Abs Immature Grans 0.02 10^3/uL (0.0-0.06); Absolute Basophil Count 0.07 10^3/uL (0.0-0.2); Absolute Lymphocyte Count 3.11 10^3/uL (1.2-3.4); Absolute Monocyte Count 1.19 10^3/uL (0.1-0.8); Absolute Neutrophil Count 4.89 10^3/uL (1.2-6.7); Basophils % 0.7 %; Eosinophils % 1.1 %; HCT 49.4 % (40.0-50.0); HGB 16.9 g/dL (13.5-17.5); Immature Grans % 0.2 %; Lymphocytes % 33.2 %; MCHC 34.2 % (32.0-36.0); MCV 85 fL (80-95); MPV 11.9 fL (8.0-11.0); Monocytes % 12.7 %; Neutrophils % 52.1 %; Platelet Count 325 10^3/uL (130-400); RBC 5.82 10^6/uL (4.36-5.78); RDW 14.2 % (11.8-14.1); RDW-SD 43.9 fL; WBC 9.38 10^3/uL (4.4-10.8)
== END 2024-06-03 05:02 | disposition home or self-care (01) ==
LOC: LBO 05:01
PROVIDERS: PCP Nurse Practitioner; Visit Provider Internal Medicine Hematology & Oncology
DX: D69.3 Immune thrombocytopenic purpura (principal)
CPT/HCPCS: 36415; 81270; 85025

== ENCOUNTER 2024-11-06 00:24 | Outpatient (CLI) | payer OTHER, SELFPAY ==
[2024-11-06 11:01] LABS: Calculated LDL 134 mg/dL (<100); Cholesterol 203 mg/dL (<200); HDL Cholesterol 56 mg/dL (>or=40); Triglyceride 65 mg/dL (<150)
== END 2024-11-06 00:25 | disposition home or self-care (01) ==
LOC: LBO 00:24
PROVIDERS: PCP Nurse Practitioner; Visit Provider Internal Medicine Hematology & Oncology
DX: Z13.220 Encounter for screening for lipoid disorders (principal)
CPT/HCPCS: 36415; 80061

== ENCOUNTER 2024-12-06 09:04 | Emergency (ER) | payer OTHER, SELFPAY ==
[2024-12-06 09:07] VITALS: BP 144/97; PULSE 100; RESP 20; TEMP 36.9; O2SAT 97
--- NOTE | 2024-12-06 09:21 | ED.GENADUL_ITS ---
Discharge Plan Disposition Patient Disposition: Home Discharge Details Clinical Impression: Acute paronychia of right thumb Primary Care Provider: Aicha Beckford ED Provider: Anjelica Garg Home Meds and New Rx's Prescriptions: New cephalexin 500 mg capsule 500 mg PO QID 5 Days Qty: 20 0RF mupirocin 2 % ointment 1 applic topical TID Qty: 15 0RF Rx Instructions: Apply thin layer to affected area 3 times daily No Action lisinopril 20 mg tablet 20 mg PO DAILY Qty: 90 3RF methylphenidate HCl 36 mg tablet extended release 24hr 36 mg PO DAILY MDD 36mg Qty: 28 0RF methylphenidate HCl 36 mg tablet extended release 24hr 36 mg PO DAILY MDD 36mg Qty: 28 0RF methylphenidate HCl 36 mg tablet extended release 24hr 36 mg PO DAILY MDD 36mg Qty: 28 0RF methylphenidate HCl 10 mg tablet 10 mg PO DAILY MDD 36 ER, 10 IR Qty: 28 0RF Rx Instructions: Take early afternoon. ibuprofen 200 mg tablet 1,200 mg PO DAILY PRN Discharge Instructions Instructions: Paronychia ED Additional Instructions: Please call your primary care provider's office first thing in the morning to schedule follow-up appointment within the next 3 to 4 days for reassessment. Please take the antibiotics as prescribed. I recommend that you soak your thumb in warm water with Epsom salts for 15 to 20 minutes at a time 3-4 times a day. Apply a thin layer of mupirocin ointment after soaking. You may use Tylenol and/or ibuprofen as needed for discomfort. Return to emergency care if you develop worsening swelling/extension of the redness, difficulty moving your thumb or numbness to your thumb, generalized feeling of unwellness, fever/chills, or if you are very worried and need to be rechecked again immediately. Referrals: Aicha Beckford, ALEX [Primary Care Provider] - HPI General Date/Time Provider Initiated Documentation: 12/06/24 09:06 . HPI Narrative: Shakeel is a 44 year old male who presents to the emergency department today for evaluation of swelling and redness to right arm. 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 He thought maybe he got a splinter, but he was unable to visualize anything, at 's recommendation soaked in Epsom salts and warm water, applied antibiotic ointment afterwards. A small amount of pus drained after soaking and pressing on lateral nailfold. Pain and redness has persisted. Denies difficulty moving thumb, distal numbness/tingling, fever/chills, general malaise, rigors, general feeling of unwellness, or known trauma. Past medical history is significant for immunocompromise due to splenectomy, HTN, anxiety. He is right-handed. No recent antibiotic use within the last 3 months or history of antibiotic resistance. Physical exam remarkable for tenderness in swelling with erythema to lateral aspect of right thumb nail fold. Full range of motion and sensation intact, brisk cap refill. No foreign bodies visualized or obvious abscess. Patient is well-appearing. D/dx includes but is not limited to: Paronychia, foreign body, cellulitis. No red flags concerning for deep space infection. Patient does not meet SIRS criteria for sepsis. While in the emergency department, Shakeel received a warm water soak with chlorhexidine. As area was uncomfortable, Emla cream applied prior to manipulation of the area with sterile forceps. Nail fold was pushed back from nailbed, no pus expressed at this time. Patient tolerated procedure well. Mupirocin ointment and bandage applied. I did review previous medical records, including office visits with PCP. He was treated for cellulitis with Keflex on 11/04/19, no difficulty with healing. Reviewed discharge instructions with patient, including symptomatic management and red flags indicating need for return to emergency care Related Data Home Medications ?Medication ?Instructions ?Recorded ?Confirmed ibuprofen 200 mg tablet 1,200 mg PO DAILY PRN 09/02/18 12/06/24 lisinopril 20 mg tablet 20 mg PO DAILY #90 tab-caps 07/27/24 12/06/24 methylphenidate HCl 36 mg 36 mg PO DAILY #28 tabs 09/21/24 12/06/24 tablet,extended release 24 hr methylphenidate HCl 36 mg 36 mg PO DAILY #28 tabs 09/21/24 12/06/24 tablet,extended release 24 hr methylphenidate HCl 36 mg 36 mg PO DAILY #28 tabs 09/21/24 12/06/24 tablet,extended release 24 hr methylphenidate HCl 10 mg tablet 10 mg PO DAILY #28 tabs 11/24/24 12/06/24 cephalexin 500 mg capsule 500 mg PO QID 5 days #20 caps 12/06/24 mupirocin 2 % topical ointment 1 applic topical TID #15 grams 12/06/24 Previous Rx's ?Medication ?Instructions ?Recorded lisinopril 20 mg tablet 20 mg PO DAILY #90 tab-caps 07/27/24 methylphenidate HCl 36 mg 36 mg PO DAILY #28 tabs 09/21/24 tablet,extended release 24 hr methylphenidate HCl 36 mg 36 mg PO DAILY #28 tabs 09/21/24 tablet,extended release 24 hr methylphenidate HCl 36 mg 36 mg PO DAILY #28 tabs 09/21/24 tablet,extended release 24 hr methylphenidate HCl 10 mg tablet 10 mg PO DAILY #28 tabs 11/24/24 cephalexin 500 mg capsule 500 mg PO QID 5 days #20 caps 12/06/24 mupirocin 2 % topical ointment 1 applic topical TID #15 grams 12/06/24 Allergies Allergy/AdvReac Type Severity Reaction Status Date / Time No Known Allergies Allergy Verified 12/06/24 09:12 General Stated Complaint: Cellulitis ANDRIA: 3 Exam Const General: cooperative, healthy appearing, comfortable, no acute distress, well developed and well groomed Nutritional Appearance: average body habitus Orientation: alert and oriented x3 Resp Effort & Inspection: normal respiratory effort and able to speak in complete sentences Extrem Right upper extremity: hand Details: neuromotor exam normal, neurosensory exam normal, tendon exam normal and tenderness (with erythema ) Location: of the thumb (lateral aspect of distal thumb next to nailbed) Other: Course Vital Signs Vital signs: Vital Signs Temperature 36.9 C 12/06/24 09:07 Pulse 100 H 12/06/24 09:07 Respiratory Rate 20 12/06/24 09:07 Blood Pressure 144/97 H 12/06/24 09:07 Pulse Oximetry 97 12/06/24 09:07 Temperature 36.9 C 12/06/24 09:07 Temperature Source Oral 12/06/24 09:07 Pulse 100 H 12/06/24 09:07 Respiratory Rate 20 12/06/24 09:07 Blood Pressure 144/97 H 12/06/24 09:07 Blood Pressure Position Sitting 12/06/24 09:07 Pulse Oximetry 97 12/06/24 09:07 Oxygen Delivery Method Room Air 12/06/24 09:07 Oxygen Flow Rate 0 12/06/24 09:07 Medical Decision Making Quality:SDOH Health Related Social Needs: 2 No Data to Display PFSH All Active Problems (Updated 12/06/24 @ 09:43 by Anjelica Carcamo) Acute paronychia of right thumb (Acute) ADD (attention deficit disorder) (Acute) COVID (Acute ~07/30/23) Pulmonary nodules (Acute) 11/28/22 [facility] Impacted cerumen, left ear (Acute) Acute idiopathic thrombocytopenic purpura (Acute) 01/24/22 [facility] and return in 6 months 08/22/21 F/U [facility] Hem/Onc Annual physical exam (Acute) Snoring (Acute) Stenosing tenosynovitis of finger of left hand (Acute) Employee exposure to body fluids (Acute) Employee exposure to body fluids (Acute) Periodic limb movement disorder (Chronic 09/20/20) Heavy breathing (Acute) Snoring (Acute) Daytime somnolence (Acute) Encounter for screening for other viral diseases (Acute) Sebaceous cyst (Acute) Rash (Acute) Insomnia (Acute) Cellulitis (Acute) 11/04/18 ENT ov Tender lymph node (Acute) Ear pain, right (Acute) 04/29/19 ENT [place]- feels abnl auditory perception is due to hair or minimal transient Eustacian Tube Dysfunction Neuralgia, post-herpetic (Acute) S/P splenectomy (Chronic) Neoplasm of skin (Acute 05/24/14) Mood disorder (Acute 11/07/17) Hypertension (Chronic 03/20/13) Lisinopril started 12/2008 [place]; discont 05/2013; TLCs; Goal BP </=140/90; EXACERBATED by high dose Prednisone for ITP 01/2016 Eczema (Acute 05/28/13) Chronic midline low back pain with sciatica (Acute 11/07/17) Arthralgia of right acromioclavicular joint (Acute 11/13/17) Anxiety (Chronic 12/15/15) Submandibular abscess (Acute) Peritonsillar abscess (Acute) Abscess of submandibular gland (Acute) Dental infection (Acute) Hip bursitis (Acute) ITP (idiopathic thrombocytopenic purpura) (Chronic ~11/2015) relapse 04/2017, 06/2018 Surgical History H/O splenectomy [facility] [place] 08/08/[address]Trus justice of chin (05/24/14) seborrheic keratosis Vasectomy (01/05/11) Dr. Padilla Family History (Updated 09/21/24 @ 16:59 by Shital Fritz LPN) Paternal Grandmother Cancer Father No problems noted. 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 Pets and animals: Yes Sexually active: Yes Do you think of yourself as: straight/heterosexual Current gender identity: male What is your relationship status?: How often do you talk on the phone with friends or family?: twice per week How often do you get together with friends or relatives?: once per week Do you belong to any clubs or organized social groups?: no Panel score (0-1 are the most socially isolated patients): 2 What type of physical activity do you participate in: additional Details: very physically at work Annalise/Sabianism: Bahai Special annalise needs: No Seatbelt use: sometimes Helmet use: Yes Drive intox or ride w/intox home delivery driver: No Working smoke detector in home: Yes Fire extinguisher in home: Yes Carbon monox detector in home: Yes Do you feel safe at home: Yes Do you feel safe in your relationship?: Yes
[2024-12-06] MEDS: Cephalexin 500 MG CAP PO (09:38)
[2024-12-06] MEDS: Lidocaine/Prilocaine Cream 5 GM TUBE TP (09:59)
[2024-12-06 10:03] VITALS: PULSE 90
[2024-12-06] MEDS: Cephalexin 500 MG CAP, 4 CAPS/BTL PO (10:25)
[2024-12-06] MEDS: Mupirocin 2% Oint. 22 GM TUBE TP (10:26)
== END 2024-12-06 10:29 | disposition home or self-care (01) ==
PROVIDERS: Emergency Provider Nurse Practitioner Family; PCP Nurse Practitioner
DX: L03.011 Cellulitis of right finger (principal)
CPT/HCPCS: 99283; 99284

== ENCOUNTER 2025-06-09 01:33 | Outpatient (CLI) | payer OTHER, SELFPAY ==
[2025-06-09 14:39] LABS: HCT 47.1 % (40.0-50.0); HGB 16.0 g/dL (13.5-17.5); MCH 28.5 pg (27.0-33.0); MCHC 34.0 % (32.0-36.0); MCV 84 fL (80-95); MPV 11.8 fL (8.0-11.0); RBC 5.62 10^6/uL (4.36-5.78); RDW 14.6 % (11.8-14.1); RDW-SD 44.2 fL; WBC 11.48 10^3/uL (4.4-10.8)
[2025-06-09 14:56] LABS: Abs Immature Grans 0.00 10^3/uL (0.0-0.06); Immature Grans % 0.0 %
[2025-06-09 14:57] LABS: Platelet Count 298 10^3/uL (130-400); RBC Morphology Normal
[2025-06-09 14:59] LABS: ALT 52 U/L (16-63); AST 34 U/L (15-37); Albumin 4.3 g/dL (3.4-5.0); Alkaline Phosphatase 90 U/L (46-116); Anion Gap 8.2 mmol/L (3-11); BUN 14 mg/dL (7-18); Bilirubin, Total 0.7 mg/dL (0.2-1.0); CO2 29.8 mmol/L (21.0-32.0); Calcium 10.0 mg/dL (8.5-10.1); Chloride 102 mmol/L (98-107); Estimated GFR 112.61 (mL/min/1.73m2); Glucose 84 mg/dL (74-106); LDH 205 U/L (85-227); Potassium 4.1 mmol/L (3.5-5.1); Sodium 140 mmol/L (136-145); Total Protein 7.9 g/dL (6.4-8.2)
== END 2025-06-09 01:34 | disposition home or self-care (01) ==
LOC: LBO 01:33
PROVIDERS: PCP Nurse Practitioner; Visit Provider Internal Medicine Hematology & Oncology
DX: D69.3 Immune thrombocytopenic purpura (principal); Z90.81 Acquired absence of spleen
CPT/HCPCS: 36415; 80053; 82784; 83615; 85025